=== PATIENT | male | born 1940 | race Caucasian/White ===

== ENCOUNTER → 2017-08-19 | Outpatient (CLI) | payer OTHER ==
[~2017-08-19] MED LIST: AMIODARONE HCL100 MG PO; ASPIR 8181 MG PO; AUGMENTIN 875875 MG PO; AZITHROMYCIN250 MG PO; BACTRIM DS TAB1 EAC1 PO; BACTRIM DS TAB1 EACH PO; CARVEDILOL12.5 MG PO; CARVEDILOL6.25 MG PO; CATAPRES-TTS 10.1 M1 TRANSDERM; CENTRUM SILVER1 EAC2 PO; COLACE100 MG PO; DIGOXIN250 MCG PO; ELIQUIS2.5 MG PO; ELIQUIS5 MG PO; HYDRALAZINE 2525 MG PO; HYTRIN 1 MG CAP1 MG PO; HYTRIN 2MG CAPSU2 M1 PO; HYTRIN 5 M5 MG/1 CAP PO; KEFLEX500 M1 PO; LASIX 40 MG TAB40 M2 PO; LEVOTHYROXIN0.175 MG PO; LIPITOR40 MG PO; MIRALAX17 GM PO; NIFEDIPINE XL30 MG PO; NORVASC10 MG PO; NYSTATIN 1100000 U/M PO; PACERONE 200 M200 M1 PO; PREDNISONE 10 M10 MG PO; PREDNISONE 20 M20 MG PO; RENAL CAPS SOFTG1 MG PO; SYNTHROID150 MCG PO; TUMS E.S.750 MG PO; TUMS PO; TYLENOL325 MG PO; VITAMIN B122500 MC1 PO
== END ==
LOC: M.LAB 13:10
DX: J44.1 Chronic obstructive pulmonary disease with (acute) exacerbation (principal); J90 Pleural effusion, not elsewhere classified; I26.99 Other pulmonary embolism without acute cor pulmonale

== ENCOUNTER 2017-09-19 10:48 | Inpatient (IN) | payer OTHER ==
[~2017-09-19] VITALS: Ht 180.3 cm; Wt 75.7 kg
[~2017-09-19 10:48] MED LIST changes: -COLACE100 MG PO; -ELIQUIS2.5 MG PO; -HYTRIN 1 MG CAP1 MG PO; -HYTRIN 2MG CAPSU2 M1 PO; -KEFLEX500 M1 PO; -MIRALAX17 GM PO; -SYNTHROID150 MCG PO; -TYLENOL325 MG PO
[2017-09-19 10:54] VITALS: BP 150/50
[2017-09-19] MEDS ORDERED: ELIQUIS2.5 MG PO (11:25)
[2017-09-19] MEDS ORDERED: LASIX 40 MG TAB40 M2 PO (11:27)
[2017-09-19] MEDS ORDERED: HYTRIN 1 MG CAP1 MG PO (11:28)
[2017-09-19] MEDS ORDERED: HYTRIN 2MG CAPSU2 M1 PO (11:28)
[2017-09-19] MEDS ORDERED: SYNTHROID150 MCG PO (11:28)
[2017-09-19 11:53] LABS: BE 5.3 mmol/L (-2 to +3); HCO3 28.5 mmol/L (22.0-26.0); PCO2 36.4 mmHg (35.0-45.0); PO2 65.6 mmHg (75.0-100.0); pH 7.511 (7.340-7.450)
[2017-09-19 12:31] LABS: ANION GAP 7 mmol/L (7-16); BUN 14 mg/dL (7-18); CALCIUM 8.9 mg/dL (8.5-10.1); CHLORIDE 97 mmol/L (98-107); CO2 35 mmol/L (21-32); CREATININE 2.7 mg/dL (0.6-1.3); GLUCOSE 105 mg/dL (70-99); POTASSIUM 3.6 mmol/L (3.5-5.1); SODIUM 139 mmol/L (136-145)
[2017-09-19 12:33] LABS: APTT 40.1 Seconds (25.0-31.3); HEMATOCRIT 28.7 % (42.0-52.0); HEMOGLOBIN 9.6 gm/dL (14.0-18.0); INR 1.3; MCH 30.3 pg (26.0-34.0); MCHC 33.2 g/dL (28.0-37.0); MPV 7.7 fl. (7.2-11.1); NUCLEATED RBCS 0 /100WBC; PLATELET COUNT* 234 thou/uL (150-400); PROTIME 12.7 Seconds (9.20-11.50); RBC 3.16 mil/uL (4.50-6.00); RDW-CV 17.4 % (10.5-14.5)
[2017-09-19 12:42] LABS: ALBUMIN 3.1 g/dL (3.4-5.0); ALKALINE PHOSPHATASE 63 U/L (46-116); NT-PRO BRAIN NAT PEPTIDE > 35000 pg/mL (<300); SGOT 17 U/L (15-37); SGPT 13 U/L (30-65); TOTAL BILIRUBIN 0.7 mg/dL (<0.1-1.0); TOTAL PROTEIN 8.1 g/dL (6.4-8.2); TROPONIN-I LEVEL <0.06 ng/mL (<0.06)
[2017-09-19 12:58] LABS: ABSOLUTE BASOPHILS 0.1 thou/uL (0.0-0.2); ABSOLUTE EOSINOPHILS 0.2 thou/uL (0.0-0.7); ABSOLUTE LYMPHOCYTES 0.5 thou/uL (0.8-5.3); ABSOLUTE MONOCYTES 0.4 thou/uL (0.0-1.2); ABSOLUTE NEUTROPHILS 6.9 thou/uL (1.6-8.1)
[2017-09-19 12:59] LABS: PLATELET ESTIMATE ADEQUATE
--- NOTE | 2017-09-19 14:02 | NUR ---
LUNCH TRAY WAS SERVED
--- NOTE | 2017-09-19 14:35 | EKG ---
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 CUTLER : 1940 Requested By: Rubén Cuba Order Number: [id number] MD: Kalia Glass Measurements Intervals [place] Rate: 79 P: 43 OH: 48 QRS: 58 QRSD: 96 T: 6 QT: 428 QTc: 491 Interpretive Statements Sinus rhythm Atrial premature complex Left atrial enlargement Nonspecific repol abnormality, diffuse leads Borderline prolonged QT interval Compared to ECG 01/10/2017 10:26:12 Atrial premature complex(es) now present Atrial abnormality now present Atrial fibrillation no longer present Electronically Signed On 09-19-2017 14:35:29 CDT by Kalia Glass [email or web address] <ELECTRONICALLY SIGNED> By: Kalia Glass MD, [facility] 09/19/17 1435 1100 1100 Kalia Glass MD, [facility] /EPI
[2017-09-19 16:08] VITALS: BP 163/63
[2017-09-19 18:04] VITALS: BP 155/69
--- NOTE | 2017-09-19 18:30 | NUR ---
PT ARRIVED TO UNIT. ORIENTED TO UNIT. CALL LIGHT WITHIN REACH. PT ON 02@4L NC
[2017-09-19 19:40] VITALS: BP 142/53
[2017-09-19 23:27] VITALS: BP 146/57
--- NOTE | 2017-09-20 03:24 | NUR ---
ASSUMED CARE OF PT AT 1900. PT IS ALERT AND ORIENTED. VSS. PERRLA. NO COMPLAINTS OF PAIN. NO COMPLAINTS OF SOA. PT IS IN SINUS RYTHM ON THE TELEMETRY. PT IS RESTING COMFORTABLY IN BED. RESPIRATIONS ARE EVEN AND NONLABORED. WILL CONTINUE TO MONITOR PT.
[2017-09-20 04:30] VITALS: BP 120/56
[2017-09-20 04:58] LABS: ABSOLUTE LYMPHOCYTES 0.2 thou/uL (0.8-5.3); ABSOLUTE MONOCYTES 0.1 thou/uL (0.0-1.2); ABSOLUTE NEUTROPHILS 5.5 thou/uL (1.6-8.1); BASOPHILS 0.3 %; HEMATOCRIT 26.1 % (42.0-52.0); HEMOGLOBIN 8.7 gm/dL (14.0-18.0); LYMPHOCYTES 3.9 %; MCH 30.5 pg (26.0-34.0); MCHC 33.2 g/dL (28.0-37.0); MCV 91.9 fL (80.0-100.0); MONOCYTES 1.8 %; NUCLEATED RBCS 0 /100WBC; PLATELET COUNT* 197 thou/uL (150-400); RBC 2.84 mil/uL (4.50-6.00); RDW-CV 17.1 % (10.5-14.5); WBC 5.8 thou/uL (4.0-11.0)
[2017-09-20 05:32] LABS: CALCIUM 8.1 mg/dL (8.5-10.1); CREATININE 4.4 mg/dL (0.6-1.3); POTASSIUM 3.8 mmol/L (3.5-5.1)
[2017-09-20 08:26] VITALS: BP 143/58
--- NOTE | 2017-09-20 09:34 | CON ---
[address] [address] CONSULTATION Name: HERBERJOURDAN Maximino Room: [address] IN .R.#: [id number] Admission: 09/19/17 Attend Phys: Kenan Buchanan MD Discharge: Date of : 40 Report #: [id number] THIS REPORT FOR: //name// CC: Kenan Buchanan Keven Huizar DATE OF SERVICE: 09/19/2017 NEPHROLOGY CONSULTATION CONSULTING PHYSICIAN: Kenan Buchanan MD REASON FOR CONSULTATION: End-stage kidney disease. HISTORY OF PRESENT ILLNESS: This is a 77-year-old gentleman with history of end-stage kidney disease, on hemodialysis. He dialyzed today. He was sent to the Emergency Room for hypoxia. He had previous admission here in 2017 during which time he had a positive p-ANCA and hemoptysis. He was eventually transferred to [facility] for rituximab. He has also been on amiodarone and has had recently a cough with some whitish phlegm along with his hypoxia. He denies any hemoptysis. No nausea or vomiting. REVIEW OF SYSTEMS: Constitutional, psych, heme, eyes, ENT, respiratory, cardiac, GI, , endocrine, all negative except as documented above. 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 CURRENT MEDICATIONS: Reviewed. SOCIAL HISTORY: Former smoker. FAMILY HISTORY: Not pertinent. PHYSICAL EXAMINATION: VITAL SIGNS: Blood pressure 163/63, pulse 76, respirations 29, temperature 36. GENERAL: In no acute distress. EYES: Extraocular movements intact. EARS: Externally normal. CARDIOVASCULAR: Regular rate. LUNGS: Diminished breath sounds. ABDOMEN: Soft, nontender. LYMPHATICS: No significant pitting edema. PSYCHIATRIC: Awake, [place] [address] CONSULTATION Name: JOURDAN CRAVEN Room: [address]#: [id number] Admission: 09/19/17 Attend Phys: Kenan Buchanan MD Discharge: Date of : 40 Report #: [id number] LABORATORY DATA: White cell count 8, hemoglobin 9.6, platelets 234. Sodium 139, potassium 3.6, chloride 97, bicarbonate 35, BUN 14, creatinine 2.7, glucose 105, calcium 8.9, albumin 3.1. ASSESSMENT: 1. End-stage kidney disease, hemodialysis Tuesday, Tuesday and Tuesday at [facility]. 2. Pulmonary infiltrates/pneumonitis with possible fibrosis and pneumonitis. 3. 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 His c-ANCA was 1:20. He was treated with rituximab at [facility]. He does not have an outpatient package drier and he is not currently on any immunosuppression. He does not have any hemoptysis. PLAN: 1. We will continue maintenance dialysis Tuesday, Tuesday and Tuesday. 2. Antibiotics and bronchodilators have been ordered. Pulmonology has been consulted. 3. We will send an ANCA panel. Case was discussed with Dr. Buchanan. Thank you for requesting my opinion in the care and management of this patient. We will follow for dialysis needs. <ELECTRONICALLY SIGNED> By: Dilan Valdez MD 09/20/17 0934 1637 [id number] Valdez MD /nt
--- NOTE | 2017-09-20 10:11 | NUR ---
RECEIVED REPORT AND ASSUMED CARE.VSS. CARDIAC MONITORING IN PLACE. PT DENIES ANY COMPLAINTS OF PAIN. DISCUSSED PLAN OF CARE WITH PT, VERBALIZED UNDERSTANDING. ASSESSMENT COMPLETED CHARTED. BED IN LOWEST POSITION, CALL LIGHT WITHIN REACH, BED ALARM ON. PT UP WITH SBA IN ROOM, PT ON 3.5L NC. WILL CONTINUE TO MONITOR FOR REMAINDER OF THE SHIFT
--- NOTE | 2017-09-20 10:51 | NUR ---
SW met with pt to complete initial assessment, introduce self, and SW role. Pt alert, oriented, pleasant. Pt lives at home with his . Pt continues Dialysis MWF at [facility]. Pt does not anticipate any dc needs at this time. Pt does not have or need any AD for mobility or ADLs and has not history of HH or SNF. SW to follow.
[2017-09-20 11:33] VITALS: BP 141/60
--- NOTE | 2017-09-20 12:35 | NUR ---
Nutrition: Consult received for "dialysis." Pt has had ESRD on HD x7 yrs, he stated. H/o COPD, ESRD. Admitted with pneumonia, SIRS. Renal diet. Wt: 167#. Labs: BG 202, BUN 33, creat 4.4, albumin 3.1. Pt stated no nutrition needs or questions today. Consider mild risk.
[2017-09-20 15:27] VITALS: BP 138/56
--- NOTE | 2017-09-20 18:04 | NUR ---
PT RESTING IN ROOM. VSS, CARDIAC MONITORING IN PLACE. PT DENIES ANY COMPLAINTS OF PAIN. PT DIALYSIS PT M/W/F AT [facility]. DISCUSSED PLAN OF CARE, PT TOLERATING ABX TREATMENTS WELL. PT ON 3.5L NC. BED IN LOWEST POSITION, CALL LIGHT WITHIN REACH. BED ALARM ON. WILL CONTINUE TO MONITOR FOR REMAINDER OF THE SHIFT
[2017-09-20 20:10] VITALS: BP 145/61
[2017-09-21] VITALS: BP 133/50
--- NOTE | 2017-09-21 03:10 | NUR ---
PT IS ALERT AND ORIENTED. VSS. PERRLA. NO COMPLAINTS OF PAIN. NO COMPLAINTS OF SOA. PT IS IN SINUS RYTHM ON THE TELEMETRY. PT IS RESTING COMFORTABLY IN BED. RESPIRATIONS ARE EVEN AND NONLABORED. WILL CONTINUE TO MONITOR PT.
[2017-09-21 04:00] VITALS: BP 144/64
[2017-09-21 05:45] LABS: ALBUMIN 2.9 g/dL (3.4-5.0); CALCIUM 8.6 mg/dL (8.5-10.1); TOTAL BILIRUBIN 0.4 mg/dL (<0.1-1.0); TOTAL PROTEIN 7.7 g/dL (6.4-8.2)
[2017-09-21 05:54] LABS: ABSOLUTE LYMPHOCYTES 0.3 thou/uL (0.8-5.3); ABSOLUTE MONOCYTES 0.2 thou/uL (0.0-1.2); ABSOLUTE NEUTROPHILS 12.2 thou/uL (1.6-8.1); BASOPHILS 0.2 %; HEMATOCRIT 27.3 % (42.0-52.0); HEMOGLOBIN 8.9 gm/dL (14.0-18.0); MCH 30.2 pg (26.0-34.0); MCHC 32.5 g/dL (28.0-37.0); MCV 92.9 fL (80.0-100.0); MONOCYTES 1.8 %; MPV 8.1 fl. (7.2-11.1); NUCLEATED RBCS 0 /100WBC; PLATELET COUNT* 231 thou/uL (150-400); RBC 2.94 mil/uL (4.50-6.00); RDW-CV 17.5 % (10.5-14.5); WBC 12.7 thou/uL (4.0-11.0)
[2017-09-21] MEDS ORDERED: PREDNISONE 10 M10 MG PO (11:55)
[2017-09-21] MEDS ORDERED: KEFLEX500 M1 PO (11:56)
--- NOTE | 2017-09-21 12:25 | NUR ---
Pt to dc home with today. SHAI called [facility] at [facility] [phone] and informed of pt dc with pt to return to their clinic on Tuesday. SHAI faxed needed information for continuum of care to fax [phone].
[2017-09-21] MEDS ORDERED: TYLENOL325 MG PO (12:36)
[2017-09-21] MEDS ORDERED: COLACE100 MG PO (12:37)
[2017-09-21] MEDS ORDERED: MIRALAX17 GM PO (12:38)
[2017-09-21 12:40] VITALS: BP 144/64
--- NOTE | 2017-09-22 08:32 | CON ---
[facility] [address] [place] [address] CONSULTATION Name: JOURDAN CRAVEN Room: [address] IN .R.#: [id number] Admission: 09/19/17 Attend Phys: Kenan Buchanan MD Discharge: 09/21/17 Date of : 40 Report #: [id number] THIS REPORT FOR: //name// CC: Kenan Huizar REQUESTING PHYSICIAN: Kenan Buchanan M.D. REASON FOR CONSULTATION: Pulmonary infiltrates, history of p-ANCA vasculitis. DISCUSSION: The patient is a pleasant 77-year-old man who is a remote tobacco smoker, quitting greater than 20 years ago. He has a history of end-stage renal disease as well as p-ANCA vasculitis. This was originally diagnosed 6-7 years ago. He did well until last summer. Then was having issues with hemoptysis and pulmonary infiltrates. Followup serology did reveal a bump in his p-ANCA titer as well. He did receive treatment for that. He did well and support was removed. He has been doing relatively well. Continued with his thrice weekly dialysis. When he arrived at dialysis yesterday, he was not feeling well, was starting to feel more short of breath. He has had some increased cough and congestion. He is not aware of any fevers at home. He has been around a sick child. Did have a trip to [place]. He denies any chest pain. He has not had any hemoptysis since last year. When he was seen in dialysis, he had low O2 saturations and he was sent to the Emergency Department. He was evaluated there yesterday. Chest imaging did show worsening of infiltrate seen on the right side. He was started on antibiotics. He was also given IV steroids. This morning when seen, he notes he is feeling much better. Not having much of any cough or sputum production at this time. His O2 was being weaned off at the time I saw him. Currently, I do not have followup room air O2 saturation on him. He is a remote smoker, quitting greater than 20 years ago. At the time of his original diagnosis of the p-ANCA vasculitis, which was 6-7 years ago, he was being seen at [facility]. Did have bronchoscopy done at that time. Also, PFTs. I do not have the actual values, the interpretation was that he had a moderate obstructive and restrictive process. He has not had any followup CT imaging of his chest since he was here last year (as well as at [facility]). He has not seen a manager intern though it had been recommended. No recent PFTs. PAST MEDICAL HISTORY: Besides end-stage renal disease was remarkable for prior episodes of pneumonia. He had the p-ANCA vasculitis, hypertension, hypothyroidism, coronary artery disease with stents placed in the past, paroxysmal atrial fibrillation, hypothyroidism, prior cardiomyopathy [place] [address] CONSULTATION Name: READERJOURDAN Maximino Room: [address] IN [facility]#: [id number] Admission: 09/19/17 Attend Phys: Kenan Buchanan MD Discharge: 09/21/17 Date of : 40 Report #: [id number] He is normally not on any oxygen at home. No inhalers. HOME MEDICATIONS: Calcium carbonate, Lasix, levothyroxine, Eliquis, amlodipine, Hytrin. SOCIAL HISTORY: Remote smoker. 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 FAMILY HISTORY: Positive for lung cancer in the parent's. REVIEW OF SYSTEMS: ROS was done. Note positives as above. Actually has been feeling quite good up until just the last couple of days. He has been off all immunosuppressive medications, had his port removed. Denies any difficulty swallowing. Not had any nausea or vomiting. He does tend towards a little fluid retention in his legs. He is better after dialysis. Denies any syncopal episodes. No chest pain. He has not had any hemoptysis since he was here in the hospital last year. Not noted any blood in his stools. LABORATORY AND X-RAY FINDINGS: Chest x-ray was reviewed. On chest film done yesterday, it does show probably small right pleural effusion. He does have prominence of interstitial markings bilaterally. These have been seen over the last couple of years. However, he does appear to have worsening infiltrate seen on the right side relative to older studies. Last CT chest at this facility was done in December of 2016. At that time, he did have a right pleural effusion and really no fluid on the left side. He did have some consolidative changes seen bilaterally. On his chemistry today, BUN of 33, creatinine of 4.4, potassium 3.8. Transaminase is normal. ProBNP yesterday was greater than 3500. INR was 1.3. White blood cell count 5800, hemoglobin 8.7, hematocrit 26.1, platelets are normal. Serologies are currently pending from this admission. Last summer, his p-ANCA was positive at 1:160. The glomerular basement membrane antibody was negative. Arterial blood gases done yesterday on 5 liters, he had a pH of 7.51, pCO2 of 36, pO2 of 66, bicarbonate of 29 with a saturation of 92%. Blood cultures were sent and no growth to date. IMPRESSION: 1. Pulmonary infiltrates, have worsened. Clinically, suspect this is more likely pneumonia. Did have some travel as well as exposure to a small child who had been ill. He is clinically improved overnight. Has been on the antibiotics, as well as receiving steroids. Appears to have had improvement in his O2 needs. 2. History of p-ANCA vasculitis. It is not clear if his vasculitis is active at this time as well. Clinically, I suspect it is not. He has had no hemoptysis since last year. 3. Pulmonary infiltrates. I assume it seems probably chronic. May have some underlying fibrotic changes related [place] [address] CONSULTATION Name: JOURDAN CRAVEN Room: [address]#: [id number] Admission: 09/19/17 Attend Phys: Kenan Buchanan MD Discharge: 09/21/17 Date of : 40 Report #: [id number] 4. History of paroxysmal atrial fibrillation. He has been chronically anticoagulated. 5. End-stage renal disease, is on chronic hemodialysis. 6. Anemia. RECOMMENDATIONS: 1. We will follow up chest x-ray tomorrow. 2. Wean O2 as able. 3. Continue antibiotics, but should be able to start tapering back on the prednisone. 4. He has not had a CT scan done of his chest. We will make arrangements for that to be done. 5. Unfortunately he has not followed through and seen Rheumatology. Trying to get that done at some point as an outpatient would probably be prudent. 6. Consider full pulmonary function studies when he is out of the hospital and over this acute event to ascertain his baseline. <ELECTRONICALLY SIGNED> By: Marlena Win MD 09/22/17 0832 1248 1954Marlena Win MD /nt
== END 2017-09-21 13:57 | disposition home or self-care (01) | DRG 177 ==
LOC: M.ERS 10:48 → M.2W 12:53 → M.TBA-ER 12:53 → M.2W 16:20
PROVIDERS: Emergency Medicine; ADMIT Internal Medicine
DX: J15.6 Pneumonia due to other Gram-negative bacteria (principal); N18.6 End stage renal disease; J96.01 Acute respiratory failure with hypoxia; J44.1 Chronic obstructive pulmonary disease with (acute) exacerbation; J44.0 Chronic obstructive pulmonary disease with (acute) lower respiratory infection; R65.10 Systemic inflammatory response syndrome (SIRS) of non-infectious origin without acute organ dysfunction; I42.9 Cardiomyopathy, unspecified; I12.0 Hypertensive chronic kidney disease with stage 5 chronic kidney disease or end stage renal disease; I48.0 Paroxysmal atrial fibrillation; D64.9 Anemia, unspecified; I25.10 Atherosclerotic heart disease of native coronary artery without angina pectoris; E03.9 Hypothyroidism, unspecified; Z87.891 Personal history of nicotine dependence; Z99.2 Dependence on renal dialysis; Z95.5 Presence of coronary angioplasty implant and graft; Z79.899 Other long term (current) drug therapy; Z88.8 Allergy status to other drugs, medicaments and biological substances; Z83.6 Family history of other diseases of the respiratory system; Z80.1 Family history of malignant neoplasm of trachea, bronchus and lung

== ENCOUNTER 2018-04-17 15:18 | Inpatient (IN) | payer OTHER ==
[~2018-04-17] VITALS: Ht 177.8 cm; Wt 54.9 kg
[~2018-04-17 15:18] MED LIST changes: +COLACE100 MG PO; +ELIQUIS2.5 MG PO; +HYTRIN 1 MG CAP1 MG PO; +HYTRIN 2MG CAPSU2 M1 PO; +KEFLEX500 M1 PO; +MIRALAX17 GM PO; +SYNTHROID150 MCG PO; +TYLENOL325 MG PO
[2018-04-17 17:05] VITALS: BP 169/85
[2018-04-17] MEDS ORDERED: NEPHROCAPS SOFT1 CAP PO (17:23)
--- NOTE | 2018-04-17 18:00 | NUR ---
PT DIRECT ADMIT FROM [facility]. PT HAS HAD WORSENING COUGH WITH CONGESTION X1 WEEK WITH REPORTED THICK GREEN PHLEGM. PT LUNGS COURSE THROUGHOUT, CONGESTED COUGH, RESPIRATIONS EVEN AND LABORED WITH ACTIVITY, ABLE TO RECOVER EASILY WITH REST. O2 SAT ON ARRIVAL 86 RA AFTER WALKING TO ROOM FROM FRONT OF HOSPITAL. 2L O2 NC APPLIED, O2 SAT MID 90'S. PT HAS HEMODIALYSIS M,W,F AND DID COMPLETE DIALYSIS TODAY. PT DENIES PAIN. TELE AFIB. PT ORIENTED TO ROOM, ABLE TO MAKE NEEDS KNOWN, CALL LIGHT IN REACH.
[2018-04-17 18:23] LABS: HEMATOCRIT 30.7 % (42.0-52.0); HEMOGLOBIN 10.1 gm/dL (14.0-18.0); MCH 32.8 pg (26.0-34.0); MCHC 32.9 g/dL (28.0-37.0); MCV 99.5 fL (80.0-100.0); MPV 9.5 fl. (7.2-11.1); NUCLEATED RBCS 0 /100WBC; PLATELET COUNT* 110 thou/uL (150-400); RBC 3.08 mil/uL (4.50-6.00); RDW-CV 17.3 % (10.5-14.5); WBC 6.9 thou/uL (4.0-11.0)
[2018-04-17 18:31] LABS: CALCIUM 8.6 mg/dL (8.5-10.1); CREATININE 4.4 mg/dL (0.6-1.3); POTASSIUM 4.3 mmol/L (3.5-5.1)
[2018-04-17 18:36] LABS: ALBUMIN 2.9 g/dL (3.4-5.0); TOTAL BILIRUBIN 0.8 mg/dL (<0.1-1.0); TOTAL PROTEIN 7.6 g/dL (6.4-8.2)
[2018-04-17 18:55] LABS: ABSOLUTE EOSINOPHILS 0.1 thou/uL (0.0-0.7); ABSOLUTE LYMPHOCYTES 0.6 thou/uL (0.8-5.3); ABSOLUTE MONOCYTES 0.3 thou/uL (0.0-1.2); ABSOLUTE NEUTROPHILS 5.9 thou/uL (1.6-8.1); ANISOCYTOSIS 1+; MICROCYTES 1+; PLATELET ESTIMATE ADEQUATE
[2018-04-17 20:00] VITALS: BP 148/74
--- NOTE | 2018-04-17 20:00 | NUR ---
RECEIVED REPORT AND ASSUMED CARE OF PT, ASSESSMENT COMPLETED. O2 ON AT 2L/NC, NO SOB NOTED. PT HAVING A FREQ PRODUCTIVE COUGH. SPUTUM OBTAINED AND SENT TO LAB. TELEMETRY ON SHOWING A-FIB WITH OCC PVC. WILL CONT TO MONITOR AND ASSIST NEEDED.
[2018-04-17 22:02] LABS: URINE BILIRUBIN NEGATIVE (Negative); URINE BLOOD NEGATIVE (Negative); URINE CLARITY CLEAR; URINE COLOR YELLOW; URINE GLUCOSE-RANDOM NEGATIVE (Negative); URINE KETONES NEGATIVE (Negative); URINE LEUKOCYTES NEGATIVE (Negative); URINE NITRITE NEGATIVE (Negative); URINE PROTEIN 2+ (Negative); URINE SPECIFIC GRAVITY 1.015 (1.005-1.030); URINE UROBILINOGEN 0.2 E.U./dl (0.2-1.0)
[2018-04-17 22:19] LABS: BACTERIA None Seen /HPF (None Seen); CASTS None Seen /LPF (None Seen); CRYSTALS None Seen /LPF (None Seen); MUCUS 0-3 Light strn/LPF (None Seen); SQUAMOUS 4-10 Moderate /LPF (0-3); URINE RBC None Seen /HPF (0-2); URINE WBC None Seen /HPF (0-5)
[2018-04-17 22:34] LABS: BE 2.2 mmol/L (-2 to +3); HCO3 25.8 mmol/L (22.0-26.0); PCO2 36.1 mmHg (35.0-45.0); PO2 74.4 mmHg (75.0-100.0); pH 7.472 (7.340-7.450)
[2018-04-18] VITALS: BP 151/69
[2018-04-18 01:17] LABS: INFLUENZA A ANTIGEN None Detected (None Detect); INFLUENZA B ANTIGEN None Detected (None Detect)
[2018-04-18 04:00] VITALS: BP 127/71
[2018-04-18 04:52] LABS: HEMATOCRIT 30.8 % (42.0-52.0); HEMOGLOBIN 10.2 gm/dL (14.0-18.0); MCV 100.2 fL (80.0-100.0); MPV 9.4 fl. (7.2-11.1); RBC 3.07 mil/uL (4.50-6.00); WBC 6.2 thou/uL (4.0-11.0)
[2018-04-18 05:17] LABS: CREATININE 5.3 mg/dL (0.6-1.3); MAGNESIUM 2.1 mg/dL (1.8-2.4); POTASSIUM 4.9 mmol/L (3.5-5.1)
--- NOTE | 2018-04-18 06:30 | NUR ---
SLEPT WELL TONIGHT. CONT COUGHING UP SPUTUM WHEN AWAKE. O2 ON AT 2L/NC. TELEMETRY CONT TO SHOW A-FIB. NO COMPLAINTS VOICED. HS GOALS OF REST AND SAFETY ACHIEVED. HOURLY ROUNDING OBSERVED.
[2018-04-18 09:00] VITALS: BP 138/65
--- NOTE | 2018-04-18 10:53 | NUR ---
ASSUMED CARE OF PATIENT THIS AM AT 0730. PATIENT IS ALERT AND ORIENTED X 4. HE DENIES PAIN. TELE SHOWS AFIB. PATIENT RECIEVING RESPIRATORY TX PER RT. HE HAS MININAL COUGH TODAY. NO SPUTUM AT THIS TIME. WILL CONTINUE TO MONITOR VS AND ASSESSMENTS.
--- NOTE | 2018-04-18 11:07 | NUR ---
CM ASSESSMENT: VISITED WITH PT IN ROOM. PT ADMITTED WITH PNEUMONIA. PT LIVES WITH AND GOES TO DIALYSIS MWF AT [facility] WITH [facility]. 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 PT WEARS O2 AT NIGHT WHICH HE GETS THROUGH [facility]. 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 HE DENIES NEEDS FOR HH. CM WILL CONTINUE TO FOLLOW
[2018-04-18 11:49] VITALS: BP 150/80
[2018-04-18 16:00] VITALS: BP 166/82
[2018-04-18 20:00] VITALS: BP 158/86
[2018-04-19] VITALS: BP 136/73
[2018-04-19 04:00] VITALS: BP 142/72
[2018-04-19 05:32] LABS: HEMOGLOBIN 9.5 gm/dL (14.0-18.0); MCH 33.4 pg (26.0-34.0); MCHC 33.7 g/dL (28.0-37.0); MPV 9.5 fl. (7.2-11.1); RBC 2.83 mil/uL (4.50-6.00); RDW-CV 16.8 % (10.5-14.5); WBC 9.1 thou/uL (4.0-11.0)
[2018-04-19 06:00] LABS: ALBUMIN 2.8 g/dL (3.4-5.0); CALCIUM 8.9 mg/dL (8.5-10.1); MAGNESIUM 2.3 mg/dL (1.8-2.4); POTASSIUM 5.2 mmol/L (3.5-5.1); TOTAL BILIRUBIN 0.7 mg/dL (<0.1-1.0); TOTAL PROTEIN 6.8 g/dL (6.4-8.2)
[2018-04-19 06:04] LABS: CREATININE 6.8 mg/dL (0.6-1.3)
--- NOTE | 2018-04-19 06:59 | NUR ---
ASSUMED PT CARE AT 2330. PT TRACING AFIB ON METAL MOLD DRESSER. HOURLY ROUNDING COMPLETED. PT VOICED NO CONCERNS THIS SHIFT. PT TO HAVE DIALYSIS TODAY. CALL LIGHT WITHIN REACH.
[2018-04-19 08:00] VITALS: BP 144/77
[2018-04-19 08:02] VITALS: BP 144/77
--- NOTE | 2018-04-19 11:31 | CON ---
[address] [address] CONSULTATION Name: HERBERLEOCLOTILDE Stanton Room: [address] IN .#: [id number] Admission: 04/17/18 Attend Phys: Francisco Javier Dey MD Discharge: Date of : 40 Report #: [id number] THIS REPORT FOR: //name// CC: Francisco Javier Huizar DATE OF SERVICE: 04/18/2018 REASON FOR CONSULTATION: Assist in providing dialysis. HISTORY OF PRESENT ILLNESS: The patient is a very pleasant 78-year-old gentleman, with medical history significant for end-stage renal disease. He is on chronic dialysis on Tuesday, Tuesday, and Tuesday schedule. He also has history of p-ANCA vasculitis, treated with Cytoxan and steroids in the past, presented with shortness of breath. He was admitted with a diagnosis of pneumonia. SOCIAL HISTORY: No tobacco or alcohol abuse. He has a very supportive family. He is physically active. FAMILY HISTORY: Noncontributory. MEDICATIONS: Reviewed. REVIEW OF SYSTEMS: Positive for cough, shortness of breath, cough with sputum, which is brownish-greenish in color. PHYSICAL EXAMINATION: GENERAL: Awake, alert, oriented. States that he feels better today. VITAL SIGNS: Blood pressure is 138/65, heart rate 85, afebrile. HEENT: Pupils are round. NECK: Supple. LUNGS: With coarse breath sounds bilaterally, very poor breath sounds overall. CARDIOVASCULAR: Regular rate. ABDOMEN: Soft. LOWER EXTREMITIES: No edema. LABORATORY DATA: Report from today; serum sodium 137, potassium 4.9, BUN 39, creatinine 5.3. Hemoglobin is 10.2, white count 6200. He has a chest x-ray and a CT scan, both revealed extensive alveolar opacities, diffuse interstitial prominence and some sickness and there was a large area of consolidation in the right middle lobe, which apparently was present on the previous exam and probably represents scarring. ASSESSMENT: [place] [address] CONSULTATION Name: HERBERJOURDAN Maximino Room: [address]#: [id number] Admission: 04/17/18 Attend Phys: Francisco Javier Dey MD Discharge: Date of : 40 Report #: [id number] 1. End-stage renal disease. 2. Respiratory distress, most likely due to pneumonia. 3. History of vasculitis. 4. 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 The patient also has an extensive coronary atherosclerosis. PLAN: 1. Dialysis tomorrow. 2. Continue antibiotics. 3. Possible consult Vascular to look and he has a high-grade stenosis of the celiac artery. <ELECTRONICALLY SIGNED> By: Tru Olmedo MD 04/19/18 1131 1151 0108AlexMD MILAN Zhao
--- NOTE | 2018-04-19 16:00 | NUR ---
VSS, ASSUMED CARE OF PT IN AM, ASSESSMENT PERFORMED AND CHARTED, FALL PRECAUTIONS IN PLACE AND CALL LIGHT IN REACH, PT IS A&O4 ON RA, WEARS 2LNC AT HS, PT DENIES ANY PAIN AND IS UP AD [facility], HE HAS COMPLETED DIALYSIS, HOURLY ROUNDS COMPLETED AND WILL FOLLOW WITH PLAN OF CARE,
[2018-04-19 16:07] LABS: HEPATITIS B SURFACE AG Negative (Negative)
[2018-04-19 16:12] VITALS: BP 148/72
[2018-04-19 20:00] VITALS: BP 147/70
[2018-04-20] VITALS: BP 144/75
[2018-04-20 04:00] VITALS: BP 144/82
--- NOTE | 2018-04-20 06:46 | NUR ---
ASSUMMED PT CARE @ 1930. VSS. PT AFIB W PVS AND MILD TACHY ON MONITOR. PT DENIES ANY DISTRESS OR DISCOMFORT OTHER THAN COUGH. PT WAS FINALLY ABLE TO FALL ASLEEP AFTER PRN NIGHT MEDS GIVEN. RESTED THROUGH NIGHT WITHOUT INCIDENT. SEE EMAR AND CHARTING. CALL LIGHT AT BEDSIDE. HOURLY ROUNDING FOR SAFETY.
[2018-04-20 08:05] VITALS: BP 154/85
[2018-04-20 12:00] VITALS: BP 138/76
[2018-04-20] MEDS ORDERED: CEFDINIR300 MG PO (12:41)
[2018-04-20] MEDS ORDERED: IPRAT-ALBUT 0.5-3 ML INH (12:41)
[2018-04-20] MEDS ORDERED: DOXYCYCLINE 10100 MG PO (12:41)
[2018-04-20] MEDS ORDERED: PULMICORT0.5 MG/2 M INH (12:41)
[2018-04-20] MEDS ORDERED: PREDNISONE 20 M20 MG PO (12:41)
[2018-04-20] MEDS ORDERED: NEBULIZER MISCELL (12:41)
[2018-04-20 13:20] VITALS: BP 138/76
--- NOTE | 2018-04-20 13:49 | NUR ---
Pt discharging to home today, [facility]
--- NOTE | 2018-04-20 14:13 | NUR ---
PT DC'D HOME WITH ALL BELONGINGS. PT ACKNOWLEDGED DC INSTRUCTIONS AND MEDICATIONS. PT SENT WITH 4 RX AND NEBULIZER TO BE DELIVERED TO HOME. PT REPORTED COUGH BETTER AND LESS PHLEGM. PT ALSO TOLERATED ACTIVITY WITHOUT SIGNIFICANT SOA. IV REMOVED INTACT BEFORE DC
== END 2018-04-20 14:04 | disposition home or self-care (01) | DRG 177 ==
LOC: M.2W 15:18
PROVIDERS: Internal Medicine; ADMIT Internal Medicine
PROC: 5A1D70Z Performance of Urinary Filtration, Intermittent, Less than 6 Hours Per Day (ICD-10-PCS; principal; 2018-04-19)
DX: J15.6 Pneumonia due to other Gram-negative bacteria (principal); N18.6 End stage renal disease; R65.10 Systemic inflammatory response syndrome (SIRS) of non-infectious origin without acute organ dysfunction; J96.11 Chronic respiratory failure with hypoxia; D68.59 Other primary thrombophilia; I12.0 Hypertensive chronic kidney disease with stage 5 chronic kidney disease or end stage renal disease; J15.9 Unspecified bacterial pneumonia; I70.208 Unspecified atherosclerosis of native arteries of extremities, other extremity; E78.5 Hyperlipidemia, unspecified; E03.9 Hypothyroidism, unspecified; I48.91 Unspecified atrial fibrillation; Z80.1 Family history of malignant neoplasm of trachea, bronchus and lung; Z88.2 Allergy status to sulfonamides; Z88.8 Allergy status to other drugs, medicaments and biological substances; Z87.891 Personal history of nicotine dependence; Z99.2 Dependence on renal dialysis

== ENCOUNTER 2018-05-17 17:06 | Inpatient (IN) | payer OTHER ==
[~2018-05-17] VITALS: Ht 180.3 cm; Wt 75.2 kg
--- NOTE | ~2018-05-17 | CON ---
[address] [address] CONSULTATION Name: HERBERJOURDAN Maximino Room: [address] IN [facility]#: [id number] Admission: 05/17/18 Attend Phys: Stu Vickers Discharge: Date of : 40 Report #: [id number] THIS REPORT FOR: //name// CC: [facility] Maureen Cobos REASON FOR CONSULTATION: Renal consult was requested for ESRD followup. HISTORY OF PRESENT ILLNESS: The patient is on a Gkperp-Hrlkuxpbo-Lhlduu schedule and has an AV fistula in the left arm. He was recently discharged from the hospital after an admission for pneumonia. He has been now readmitted for persistent dyspnea. Otherwise, he has had no fevers or chills. No chest pains. No nausea or vomiting. There is no history of diabetes or thyroid disease. In fact, all other systems were negative. PAST MEDICAL HISTORY: 1. End-stage renal disease, normally on a Moacys-Nwaouqoft-Epnszf schedule at the [facility]. 2. AV fistula in the left arm. 3. History of p-ANCA vasculitis, previously treated with immunosuppression. 4. Recent admission for pneumonia. 5. Atrial fibrillation. 6. Anemia due to chronic kidney disease. 7. Chronic obstructive pulmonary disease. 8. Hypertension. ALLERGIES: PLAVIX, SULFA AND TRIMETHOPRIM. SOCIAL HISTORY: Negative for tobacco use or alcohol use. FAMILY HISTORY: Negative for kidney disease. MEDICATIONS: Levofloxacin 500 mg every other day, apixaban 1.25 mg b.i.d., amlodipine 10 mg at bedtime, Solu-Medrol 62.5 mg every 8 hours, aspirin 81 mg daily, terazosin 1 mg daily, levothyroxine 0.2 mg daily, diltiazem 120 mg b.i.d., Colace 100 mg daily, Zosyn. PHYSICAL EXAMINATION: VITAL SIGNS: Blood pressure 135/89, pulse 112, temperature is 99. GENERAL: He is awake and alert. Mood and affect is at baseline. NECK: No jugular venous distention. CHEST: Clear. HEART: Regular rate and rhythm. ABDOMEN: Soft. There was no edema. LABORATORY DATA: Chest x-ray notable for bilateral interstitial opacities, [place] [address] CONSULTATION Name: JOURDAN CRAVEN Room: [address]#: [id number] Admission: 05/17/18 Attend Phys: Stu Vickers Discharge: Date of : 40 Report #: [id number] likely pulmonary edema. White count 5600, hemoglobin 11.6, hematocrit 35.3%, platelet count 115,000. Sodium 137, potassium 5.6, chloride 96, CO2 of 32, creatinine 3.4, calcium 9.2, phosphorus less than 0.1. IMPRESSION: 1. End-stage renal disease, normally on a Oqjsvt-Houfgfhxk-Zkfwjz schedule at [facility]. 2. History of p-ANCA positive vasculitis, previously treated with immunosuppression. 3. Severe hypophosphatemia. 4. Multifactorial dyspnea. 5. Chronic obstructive pulmonary disease. 6. Atrial fibrillation. 7. Chronic anticoagulation. 8. Anemia of chronic kidney disease. 9. Hypertension. PLAN: 1. Plan for hemodialysis tomorrow. 2. Phosphorus replacement. 3. Continue empiric antibiotics. 4. Recheck ANCA level. 5. Follow laboratory data closely. Further recommendations will depend on his clinical course. Thank you very much for asking me to see the patient and allowing me to assist in his care. By: 1527 [id number] Jose Antonio Gaitan MD /nt
[~2018-05-17 17:06] MED LIST changes: +CEFDINIR300 MG PO; +DOXYCYCLINE 10100 MG PO; +IPRAT-ALBUT 0.5-3 ML INH; +NEBULIZER MISCELL; +NEPHROCAPS SOFT1 CAP PO; +PULMICORT0.5 MG/2 M INH
[2018-05-17 17:13] VITALS: BP 173/91
[2018-05-17 18:12] LABS: HEMATOCRIT 35.3 % (42.0-52.0); HEMOGLOBIN 11.6 gm/dL (14.0-18.0); MCH 33.4 pg (26.0-34.0); MCHC 32.8 g/dL (28.0-37.0); MCV 101.8 fL (80.0-100.0); MPV 8.9 fl. (7.2-11.1); NUCLEATED RBCS 0 /100WBC; PLATELET COUNT* 115 thou/uL (150-400); RBC 3.46 mil/uL (4.50-6.00); RDW-CV 20.1 % (10.5-14.5); WBC 5.6 thou/uL (4.0-11.0)
[2018-05-17 18:17] LABS: BE 6.2 mmol/L (-2 to +3); HCO3 30.1 mmol/L (22.0-26.0); PCO2 40.6 mmHg (35.0-45.0); PO2 73.6 mmHg (75.0-100.0); pH 7.488 (7.340-7.450)
[2018-05-17 18:22] LABS: CALCIUM 9.2 mg/dL (8.5-10.1); CREATININE 3.4 mg/dL (0.6-1.3); POTASSIUM 5.6 mmol/L (3.5-5.1)
[2018-05-17 18:34] LABS: ALBUMIN 3.2 g/dL (3.4-5.0); MAGNESIUM 1.9 mg/dL (1.8-2.4); TOTAL BILIRUBIN 0.9 mg/dL (<0.1-1.0)
[2018-05-17 18:41] LABS: ABSOLUTE BASOPHILS 0.1 thou/uL (0.0-0.2); ABSOLUTE EOSINOPHILS 0.1 thou/uL (0.0-0.7); ABSOLUTE LYMPHOCYTES 0.3 thou/uL (0.8-5.3); ABSOLUTE MONOCYTES 0.2 thou/uL (0.0-1.2); ABSOLUTE NEUTROPHILS 4.9 thou/uL (1.6-8.1); PLATELET ESTIMATE ADEQUATE
[2018-05-17 19:30] LABS: URINE BILIRUBIN NEGATIVE (Negative); URINE BLOOD NEGATIVE (Negative); URINE CLARITY CLEAR; URINE COLOR YELLOW; URINE GLUCOSE-RANDOM NEGATIVE (Negative); URINE KETONES NEGATIVE (Negative); URINE LEUKOCYTES-REFLEX NEGATIVE (Negative); URINE NITRITE-REFLEX NEGATIVE (Negative); URINE PROTEIN 2+ (Negative); URINE SPECIFIC GRAVITY 1.015 (1.005-1.030); URINE UROBILINOGEN 0.2 E.U./dl (0.2-1.0)
[2018-05-17 19:35] LABS: SQUAMOUS NONE SEEN /LPF (0-3)
[2018-05-17 19:36] LABS: BACTERIA-REFLEX None Seen /HPF (None Seen); CASTS None Seen /LPF (None Seen); CRYSTALS None Seen /LPF (None Seen); URINE RBC None Seen /HPF (0-2); URINE WBC-REFLEX None Seen /HPF (0-5)
[2018-05-17 19:38] LABS: NT-PRO BRAIN NAT PEPTIDE 7 pg/mL (<300); TROPONIN-I LEVEL 0.09 ng/mL (<0.06)
[2018-05-17 19:39] LABS: PHOSPHORUS* < 0.1 mg/dL (2.5-4.9)
[2018-05-17 20:30] VITALS: BP 117/65
[2018-05-17 20:40] VITALS: BP 140/71
[2018-05-17] MEDS ORDERED: ASPIR 8181 MG PO (21:06)
[2018-05-17] MEDS ORDERED: RENAL VITAMIN0.8 MG (21:06)
--- NOTE | 2018-05-17 23:20 | NUR ---
78 Y/O MALE ADMITTED TO ROOM 213 WITH AN ADMITTING DIAGNOSIS OF PNUEMONIA. PT HAS A HX OF HTN, HYPOTHYROIDISM, ESRD WITH DIALYSIS, CARDIOVERSION, ANEMIA, PNEUMONIA, VASCULITIS, AFIB, PULMONARY FIBROSIS. PT DENIES PAIN, N/V/D, SOA. TRACING AFIB ON MONITOR. PT IS UP ADLIB TO BR WITH STEADY GAIT, ALERT & ORIENTED X4. HOURLY ROUNDING FOR SAFETY. CLWR.
[2018-05-17 23:34] VITALS: BP 132/72
[2018-05-18 04:47] VITALS: BP 137/73
--- NOTE | 2018-05-18 05:07 | NUR ---
PT AWAKE FOR MOST OF THIS SHIFT. VSS. TRACING AFIB ON MONITOR. NO CONCERNS AT THIS TIME. CLWR.
[2018-05-18 08:00] VITALS: BP 143/81
[2018-05-18 11:30] VITALS: BP 126/84
--- NOTE | 2018-05-18 13:44 | EKG ---
[place] [address] ELECTROCARDIOGRAM REPORT Name: JOURDAN CRAVEN Room: [address] IN [facility]#: [id number] Admission: 05/17/18 Attend Phys: Stu Vickers Discharge: Date of : 40 Report #: [id number] THIS REPORT FOR: //name// [facility] ED Test Date: 2018-05-17 Test Time: 17:48:38 Pat Name: JOURDAN CRAVEN Department: Room: Gender: M Pooling Operator: KAILEY : 1940 Requested By: Order Number: [id number] Merritt MD: Apollo Napier Measurements Intervals [place] Rate: 116 P: SC: QRS: 29 QRSD: 87 T: 49 QT: 318 QTc: 442 Interpretive Statements Atrial fibrillation Borderline T abnormalities, lateral leads Compared to ECG 09/19/2017 11:00:50 T-wave abnormality now present Sinus rhythm no longer present Atrial premature complex(es) no longer present Atrial abnormality no longer present Early repolarization no longer present Electronically Signed On 05-18-2018 13:44:09 DRAWING KILN SUPERVISOR by Apollo Napier [email or web address] <ELECTRONICALLY SIGNED> By: Apollo Napier MD, [facility] 05/18/18 1344 1748 1748 Apollo Napier MD, [facility] /EPI
--- NOTE | 2018-05-18 13:47 | NUR ---
RD consult received for pt on renal diet with dialysis. Recently discharge last month, readmitted with pneumonia. intermediate designer dialysis pt, aware of diet. Wts stable in 160s for several months. No nutrition intervention at this time. Continue renal diet. Low nutrition risk.
[2018-05-18 15:22] VITALS: BP 135/89
--- NOTE | 2018-05-18 15:45 | NUR ---
Pt is A&O. Resides at home with his . Pt is independent and active. Current with [facility]. Pt wears home o2 at [facility] only. No hx of HH or SNF. Goal is home at [place], no needs anticipated. CM will fax flowsheets at [place].
--- NOTE | 2018-05-18 16:49 | 2DMMODE ---
[place] [address] 2 D/M-MODE ECHOCARDIOGRAM Name: JOURDAN CRAVEN Room: [address] IN [facility]#: [id number] Admission: 05/17/18 Attend Phys: Louie Cobos Discharge: Date of : 40 Date of Service: 05/18/18 1649 Report #: [id number] THIS REPORT FOR: //name// APPROVED REPORT Study performed: 05/18/2018 15:03:41 EXAM: Comprehensive 2D, Doppler, and color-flow Echocardiogram Patient Location: In-Patient Room #: [facility] Status: routine BSA: 1.93 HR: 116 bpm BP: 126/84 mmHg Rhythm: Atrial Fibrillation Other Information Study Quality: Good Indications Atrial Fibrillation Dyspnea 2D Dimensions IVSd: 13.32 (7-11mm) LVOT Diam: 21.70 (18-24mm) LVDd: 50.08 mm PWd: 12.20 (7-11mm) Ascending Ao: 32.87 (22-36mm) LVDs: 41.83 (25-40mm) Aortic Root: 34.02 mm Volumes Left Atrial Volume (Systole) LA ESV Index: 62.60 mL/m2 Aortic Valve AoV Peak Kei.: 1.74 m/s AO Peak Gr.: 12.16 mmHg LVOT Max P.01 mmHg AO Mean Gr.: 7.17 mmHg LVOT Mean P.46 mmHg LVOT Max V: 0.87 m/s AO V2 VTI: 27.40 cm LVOT Mean V: 0.55 m/s BEKA (VTI): 2.12 cm2 LVOT V1 VTI: 15.69 cm TDI Lateral E' Kei.: 0.11 m/[place] [address] 2 D/M-MODE ECHOCARDIOGRAM Name: JOURDAN CRAVEN Room: [address] IN ..#: [id number] Admission: 05/17/18 Attend Phys: Louie Cobos Discharge: Date of : 40 Date of Service: 05/18/18 1649 Report #: [id number] Pulmonary Valve PV Peak Kei.: 0.83 m/s PV Peak Gr.: 2.76 mmHg Tricuspid Valve RAP Estimate: 15.00 mmHg TR Peak Gr.: 41.93 mmHg RVSP: 56.00 mmHg PA Pressure: 56.00 mmHg Left Ventricle The left ventricle is normal size. There is normal LV segmental wall motion. Mild concentric left ventricular hypertrophy. Left ventricular systolic function is normal. The left ventricular ejection fraction is within the normal range. LVEF is 50%. This study is not technically sufficient to allow evaluation of the LV diastolic function due to atrial fibrillation. Right Ventricle Right ventricle is dilated. Right ventricle is moderately hypokinetic. Atria Left atrium is severely dilated. Right atrium is dilated. Aortic Valve The aortic valve is normal in structure. Moderate aortic regurgitation. There is no aortic valvular stenosis. Mitral Valve There is mitral annular calcification. Mild mitral regurgitation. No evidence of mitral valve stenosis. Tricuspid Valve The tricuspid valve is normal in structure. severe tricuspid regurgitation. Moderate pulmonary hypertension. Pulmonic Valve The pulmonary valve is normal in structure. Trace pulmonic regurgitation. Great Vessels The aortic root is normal in size. IVC is dilated and collapses <50% with inspiration. Pericardium There is [place] [address] 2 D/M-MODE ECHOCARDIOGRAM Name: JOURDAN CRAVEN Room: [address] IN [facility]#: [id number] Admission: 05/17/18 Attend Phys: Louie Cobos Discharge: Date of : 40 Date of Service: 05/18/18 1649 Report #: [id number] <Conclusion> LVEF is 50%. There is normal LV segmental wall motion. Left atrium is severely dilated. Right atrium is dilated. Right ventricle is dilated. Right ventricle is moderately hypokinetic. Moderate aortic regurgitation. There is no aortic valvular stenosis. Mild mitral regurgitation. No evidence of mitral valve stenosis. severe tricuspid regurgitation. Moderate pulmonary hypertension. IVC is dilated and collapses <50% with inspiration. <ELECTRONICALLY SIGNED> By: Apollo Napier MD, FACC 05/18/181648 48 48 Apollo Napier MD, FACC /INF
--- NOTE | 2018-05-18 19:23 | NUR ---
PT TOLERATING DIET THIS SHIFT. PT AOX4 AND COOPERATIVE. NEPHROLOGY CONSULTED AND PT CONCERNED REGARDING DIALYSIS TOMORROW. PT HAS ELEVATED POTASSIUM AND NEW ORDERS PLACED THIS SHIFT FOR INCREASED HR DUE TO AFIB STATUS AND CARDIOLOGY CONSULT. NO NEW CONCERNS AT THIS TIME. NOC SHIFT HERE AND REPORT GIVEN.
[2018-05-18 20:11] VITALS: BP 141/82
[2018-05-19 00:23] VITALS: BP 133/74
[2018-05-19 04:41] VITALS: BP 94/70
[2018-05-19 05:09] LABS: HEMATOCRIT 27.8 % (42.0-52.0); MCH 33.9 pg (26.0-34.0); MCHC 33.4 g/dL (28.0-37.0); MCV 101.7 fL (80.0-100.0); MPV 9.8 fl. (7.2-11.1); RBC 2.73 mil/uL (4.50-6.00); RDW-CV 19.7 % (10.5-14.5); WBC 6.8 thou/uL (4.0-11.0)
[2018-05-19 05:32] LABS: HEMOGLOBIN 9.3 gm/dL (14.0-18.0)
--- NOTE | 2018-05-19 05:56 | NUR ---
ASSUMED PT CARE AT 1930, PT IS A&OX4, TRACING AFIB ON THE MONITOR ON 2L NC. PT DENIES ANY PAIN OR NEEDS AT THIS TIME. PT IS UP AD MARIBEL IN HIS ROOM AND APPEARS STABLE ON HIS FEET., PT RESTED WELL THROUGHOUT THE NIGHT. BED IN LOW POSITION, CALL LIGHT IN REACH HOURLY ROUNDING COMPLETED FOR PT SAFETY.
[2018-05-19 06:05] LABS: CALCIUM 8.4 mg/dL (8.5-10.1); MAGNESIUM 1.9 mg/dL (1.8-2.4); POTASSIUM 5.3 mmol/L (3.5-5.1)
[2018-05-19 06:07] LABS: CREATININE 6.2 mg/dL (0.6-1.3)
[2018-05-19 08:00] VITALS: BP 137/75
[2018-05-19 12:00] VITALS: BP 125/58
[2018-05-19] MEDS ORDERED: LASIX 40 MG TAB40 M2 PO (12:35)
--- NOTE | 2018-05-19 15:11 | NUR ---
If Pt is ready to dc over the weekend, fax H&P and flowsheets to [facility] f:[phone]
--- NOTE | 2018-05-19 15:46 | NUR ---
pt to dialysis at 1300
--- NOTE | 2018-05-19 18:51 | NUR ---
PT UP IN CHAIR FOR DINNER AFTER DIALYSIS, NO COMPLAINTS.
[2018-05-19 20:20] VITALS: BP 133/69
[2018-05-20] VITALS: BP 142/76
[2018-05-20 02:06] LABS: HEPATITIS B SURFACE AG Negative (Negative)
[2018-05-20 04:00] VITALS: BP 130/78
--- NOTE | 2018-05-20 05:43 | NUR ---
VSS. BILATERAL ANKLE/PEDAL EDEMA 2+. PT HAS DENIES PAIN, SOA, AND ANY OTHER DISCOMFORT THROUGH THE NIGHT. UP TO BATHROOM INDEPENDENTLY, STEADY GAIT. CALL LIGHT WITHIN REACH.
[2018-05-20 05:51] LABS: CALCIUM 8.5 mg/dL (8.5-10.1); CREATININE 4.3 mg/dL (0.6-1.3); PHOSPHORUS* 5.6 mg/dL (2.5-4.9)
[2018-05-20 08:00] VITALS: BP 135/66
[2018-05-20 11:43] VITALS: BP 131/72
--- NOTE | 2018-05-20 13:28 | CON ---
[address] [address] CONSULTATION Name: HERBERJOURDAN Maximino Room: [address] IN .R.#: [id number] Admission: 05/17/18 Attend Phys: Stu Vickers Discharge: Date of : 40 Report #: [id number] THIS REPORT FOR: //name// CC: Maureen Sprague DATE OF SERVICE: 05/19/2018 CARDIOLOGY CONSULTATION HISTORY OF PRESENT ILLNESS: The patient is a 78-year-old white male who I was asked to see in the hospital today because of his atrial fibrillation. The patient has an extensive and complicated past medical history. He apparently developed end-stage renal disease about 8 years ago and has been on hemodialysis. He currently has a fistula in place and goes Tuesday, Tuesday, Tuesday. He also has a history of coronary artery disease and had several stents placed at [place] several years ago. He also has a history of atrial fibrillation, was cardioverted several times at [place]. He has been chronically anticoagulated. He was on amiodarone in the past. Recently, he has been followed by my partner, Dr. Cartagena. His last hospitalization here at [facility] was in September when he presented with pneumonia. He was noted to be in atrial fibrillation at that time. The patient is not very active. He came to the Emergency Room 2 days ago. He has been short of breath and coughing. He was admitted for further evaluation and treatment. PAST MEDICAL HISTORY: He has had no major surgical procedures. He does have a history of hypertension, renal failure, chronic anemia. He apparently has pulmonary fibrosis and a history of vasculitis. No history of diabetes. MEDICATIONS AT HOME: Consists of albuterol inhaler, Eliquis, Lasix, Synthroid, amlodipine, Hytrin. ALLERGIES: HE HAS AN INTOLERANCE TO PLAVIX. FAMILY HISTORY: Negative for heart disease. SOCIAL HISTORY: He is , lives in [place]. 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 He quit smoking years ago and rarely drinks alcohol. REVIEW OF SYSTEMS: He has had no history of stroke. He does have asthma. No history of peptic ulcer disease, liver disease, cancer or psychiatric illness. He does have a history of shingles. PHYSICAL EXAMINATION: GENERAL: Revealed an elderly male who appeared in no distress, [place] [address] CONSULTATION Name: JOURDAN CRAVEN Maximino Room: [address]#: [id number] Admission: 05/17/18 Attend Phys: Stu Vickers Discharge: Date of : 40 Report #: [id number]. VITAL SIGNS: His blood pressure is 120/70, pulse is 90, he is afebrile. HEENT: He is anicteric. Conjunctivae pale. Mucous members are dry. NECK: Neck veins do not appear distended. CHEST: No coarse breath sounds. CARDIOVASCULAR: Irregular rhythm. ABDOMEN: Soft. EXTREMITIES: Had trace edema. Dorsalis pedis pulse cannot be palpated. SKIN: Cool and dry. NEUROLOGIC: Nonfocal. The patient had an echocardiogram done yesterday that showed ejection fraction of 50%, left atrial enlargement. Right ventricle is dilated, moderate aortic insufficiency, mild mitral regurgitation, severe tricuspid insufficiency with moderate pulmonary hypertension. His x-rays, he had a portable chest x-ray that showed bilateral infiltrates consistent with pulmonary fibrosis, cardiomegaly. LABORATORY DATA: Sodium 137, BUN 59, creatinine 6.2, glucose 202. His liver function studies were normal. Troponin 0.09. BNP 7. His white blood cell count 6.8, hemoglobin 9.3. IMPRESSION AND RECOMMENDATIONS: 1. Atrial fibrillation. I would not recommend repeat efforts at cardioversion. I would aim for rate control. The patient's rate seems to be somewhat increased. I would recommend adding diltiazem for rate control. 2. End-stage renal disease. The patient is on dialysis. 3. History of vasculitis. 4. Pulmonary hypertension. 5. Chronic anemia. 6. Coronary artery disease. Previous stenting. No recent angina. <ELECTRONICALLY SIGNED> By: Solitario Rico MD, FACC 05/20/18 1328 1747 [id number] Rico MD, FACC /nt
--- NOTE | 2018-05-20 19:50 | NUR ---
I ASSUMED CARE OF THE PATIENT AT 0700. HE IS ALERT AND ORIENTED X4 AND IS UP WITH SBA. HOURLY ROUNDING WAS COMPLETED AND PATIENT NEEDS WERE MET. PAIN IS DENIED. BED IS IN THE LOW LOCKED POSITION AND CALL LIGHT IS IN REACH. PATIENT IS CONCERNED WITH WHERE HE WILL BE ON TUESDAY FOR DIALYSIS. WILL CONTINUE TO MONITOR.
[2018-05-20 20:25] VITALS: BP 133/70
[2018-05-20 23:57] VITALS: BP 129/64
[2018-05-21 05:35] LABS: HEMOGLOBIN 8.9 gm/dL (14.0-18.0); MCH 34.3 pg (26.0-34.0); MCV 100.9 fL (80.0-100.0); MPV 9.2 fl. (7.2-11.1); RBC 2.58 mil/uL (4.50-6.00); RDW-CV 18.9 % (10.5-14.5); WBC 6.4 thou/uL (4.0-11.0)
[2018-05-21 05:47] LABS: CALCIUM 8.6 mg/dL (8.5-10.1); POTASSIUM 5.3 mmol/L (3.5-5.1)
[2018-05-21 06:00] LABS: CREATININE 5.8 mg/dL (0.6-1.3)
--- NOTE | 2018-05-21 07:34 | NUR ---
Pt reports he rested well overnight. VSS. This am pt discovered blood on R upper arm and gown. Source of blood is a skin tear over R biceps. Cleaned area and placed border dressing. IV out in RAC due to repeated bending of arm. Unsuccessful with new IV start X2 attempts. Passed on to day shift RN. Will continue to monitor.
[2018-05-21 08:00] VITALS: BP 145/56
--- NOTE | 2018-05-21 10:31 | CON ---
[address] [address] CONSULTATION Name: HERBERJOURDAN Maximino Room: [address] IN .R.#: [id number] Admission: 05/17/18 Attend Phys: Stu Vickers Discharge: Date of : 40 Report #: [id number] THIS REPORT FOR: //name// CC: Maureen Sprague DATE OF SERVICE: 05/20/2018 REQUESTING PHYSICIAN: Dr. Andie Herrera. REASON FOR CONSULTATION: Pneumonia. DISCUSSION: The patient is a 78-year-old man who has a history of remote tobacco abuse. His history is significant for end-stage renal disease and p-ANCA vasculitis. That has been diagnosed only 7-8 years ago and had been on immunosuppressives in the past. He has had several episodes of pneumonia. He was hospitalized here a little over a month ago where he was treated for pneumonia. He had some initial improvement on radiographs and clinically once he was discharged. However, he began having more problems with shortness of breath. He was having more cough. He was not aware of any definite fevers at home. He was evaluated initially in Outpatient Clinic in [place]. Apparently, his O2 saturations were in the 70s (he is not normally on O2 during the day, but only at night). They sent him over to the ED here. He was evaluated. X-rays were done, which revealed some increase infiltrates. It is not clear if that was fluid or pneumonia. O2 saturations were low. Was admitted. He has been started on broad-spectrum antibiotics. Clinically, he is feeling much better today. He has been moving around, notes feeling closer to his baseline. Since admission, he has had some mild tachycardia. T-max was 99.1, was several days ago. It was 99 yesterday. At this time, his cough is much improved. He is no longer coughing up any sputum. He does not follow regularly at this time with weft straightener nor marble helper. In fact, he has never seen a marble helper. He has a history of p-ANCA vasculitis as noted. Currently, at the time of diagnosis, he had presented with hemoptysis. I believe much of his initial evaluation at that time was done at [facility]. At home, he is now wearing oxygen at night. Does have a nebulizer at home. He has been doing budesonide twice a day and the DuoNeb generally 4 times a day. He had completed a round of antibiotics and steroids given to him when he was hospitalized last month. Reviewing the records here at [place], last CT chest was spring. He does not believe he has had any other CT chest done in [place] [address] CONSULTATION Name: LEO CRAVENCLOTILDE Stanton Room: [address] IN .R.#: [id number] Admission: 05/17/18 Attend Phys: Stu Vickers Discharge: Date of : 40 Report #: [id number] PAST MEDICAL HISTORY: Remarkable for the end-stage renal disease. He is on chronic hemodialysis and sees Dr. Olmedo for that. P-ANCA vasculitis. When he was here last spring, serologies at that time were low. Since a history of atrial fibrillation, he has been on chronic anticoagulation therapy for that. Nonischemic cardiomyopathy as well as known coronary artery disease. Did have stents placed in the past at [facility]. Also, has history of hypothyroidism, hypertension, and anemia due to chronic disease. ALLERGIES: HE HAS ALLERGIES TO PLAVIX AND SULFA. SOCIAL HISTORY: Former smoker, quit smoking greater than 20 years ago. Occasionally uses alcohol. FAMILY HISTORY: Positive for lung cancer. REVIEW OF SYSTEMS: A 12-point ROS was done. Note positives above. He denies any change in his appetite. He has not had any difficulty swallowing. No nausea or vomiting. Occasionally, had some mild lower extremity edema, but none recently. Not aware of any definite palpitations. No syncopal episodes. His energy level is much improved. He was feeling very run-down. Do note, he has had the flu shot for the season. He has also had the Pneumovax. Due to the holidays, he may have been around other ill contacts. PHYSICAL EXAMINATION: GENERAL APPEARANCE: A male who looks comfortable. He is resting in bed with O2 running via nasal cannula. He is alert, conversant, able to speak in full sentences and is in no acute distress. HEENT: Head is normocephalic and atraumatic. Sclerae nonicteric. Mucous membranes are little dry. NECK: Negative for adenopathy. No JVD is noted. HEART: Regular with periods of irregularity. No S3 is heard. He has a grade 1-2/6 systolic murmur. LUNGS: Reveal breath sounds to be mildly diminished. He has bibasilar Velcro sounding crackles. He does have some other rhonchi heard. Excursion appears equal. There is no dullness to percussion and no E:A changes. He has no CVA tenderness. ABDOMEN: Soft, without appreciable hepatosplenomegaly. No guarding. EXTREMITIES: Lower extremities, negative for edema. He has no clubbing. SKIN: Warm and dry. NEUROLOGIC: He is alert and oriented x 3. Moving all extremities. LABORATORY AND X-RAY FINDINGS: Chest x-ray done yesterday does show what appears to be a right pleural effusion. Consolidative changes seen right lower lung field. They do look more prominent than studies done previously. Blood cultures done this admission are negative. Sputum culture [place] [address] CONSULTATION Name: JOURDAN CRAVEN Room: [address] IN [facility]#: [id number] Admission: 05/17/18 Attend Phys: Stu Vickers Discharge: Date of : 40 Report #: [id number] he was here did grow out Moraxella catarrhalis. On his chemistry, his potassium is 5.0, BUN of 41, creatinine of 4.3. His bicarbonate was 29. Troponin is minimally elevated at 0.09. P-ANCA is pending. White blood cell count 6800, hemoglobin 9.3, hematocrit 27.8, MCV is 102, his platelets are 76,000. Arterial blood gases done when he came in on 2 liters, he had a pH 7.49, pCO2 of 41, pO2 of 74, bicarbonate 30 with a saturation of 93%. Last echocardiogram, which was done this month revealed mild concentric LVH. Systolic function was normal with an EF estimated to be around 50%. Was in atrial fibrillation. RV was dilated and RV was moderately hypokinetic. He had mild mitral regurgitation. Moderate pulmonary hypertension. Also had moderate aortic regurgitation. No aortic stenosis. CURRENT MEDICATIONS: At this time are Lasix given 4 days per week, Coreg, amiodarone, diltiazem, Eliquis, calcium, levofloxacin, budesonide twice a day, methylprednisolone 62.5 mg IV every 8 hours, terazosin, levothyroxine, docusate, DuoNeb every 4 hours, Zosyn, guaifenesin. IMPRESSION: 1. Pulmonary infiltrates consistent with pneumonia. He was ill last month, had improved, though not back to his baseline. More than likely, he had a new infection probably related to exposures over the holidays. Clinically, he is improving. 2. History of p-ANCA vasculitis. Has had a considerable amount of fibrotic changes noted on his x-rays, most likely related to prior infections as well as a vasculitis. More recent studies more consistent with consolidative changes and pleural effusion, though the exact size is not clearly defined on the plain chest film. 3. End-stage renal disease. He has been on chronic hemodialysis for greater than 5 years. 4. Atrial fibrillation, is chronically anticoagulated. 5. Development of some pulmonary hypertension. Some of this could be related to his valvular heart disease. 6. Thromboembolic disease is less likely given the fact he is chronically anticoagulated. Could also be related to underlying progressive lung disease. 7. History of p-ANCA vasculitis. Serologies done last spring were negative. He has been off all immunosuppressive therapies for greater than a year. 8. Thrombocytopenia, is relatively new. Could be drug related. RECOMMENDATIONS: 1. Wean daytime O2 as tolerated. 2. Noncontrast CT of his chest. If he does have a significant pleural effusion, consider holding Eliquis for several days and proceeding with the thoracentesis. 3. Await p-ANCA levels. [address] [place] [address] CONSULTATION Name: JOURDAN CRAVEN Room: M.213-P ADM IN M.R.#: [id number] Admission: 05/17/18 Attend Phys: Stu Vickers Discharge: Date of : 40 Report #: [id number] 4. Follow up labs, CRP, etc. in the morning. 5. Continue with bronchodilator therapy and IV steroids. <ELECTRONICALLY SIGNED> By: Marlena Win MD 05/21/18 1031 0807 [id number] Win MD /nt
[2018-05-21 15:50] VITALS: BP 144/57
--- NOTE | 2018-05-21 16:16 | NUR ---
PT HAS NO IV ACCESS, MULTIPLE ATTEMPTS WERE MADE, SPOKE WITH DR KIRK, MIDLIINE ORDER WAS PLACED, HOWEVER, PT IS A DIALYSIS PT AND PICC NURSE UNABLE TO PLACE MIDLINE, SPOKE WITH DR KIRK AGAIN AND SHE SAID TO CALL NURSING LINE ASSIGNER. NURSING LINE ASSIGNER TO CALL THE [facility] VASCULAR ACCESS TEAM AND SEE IF THEY CAN HELP WITH OBTAINING ACCESS.
[2018-05-21 20:00] VITALS: BP 133/58
[2018-05-21 23:57] VITALS: BP 144/59
--- NOTE | 2018-05-22 04:37 | NUR ---
PATIENT REMAINS STABLE THIS SHIFT, VSS ON 2L O2 NC. PATIENT DENIES PAIN AND DISCOMFORT, BUT DID NOT REST WELL. PATIENT STATES "I AM ALWAYS UP ALOT DURING THE NIGHT." PATIENT AWAITING DIALYSIS TODAY. RIGHT UPPER DRESSING SATURATED WITH BLOOD. DRESSING REINFORCED WITH KERLIX BANDAGE AND STELLA. CALL LIGHT WITHIN REACH
[2018-05-22 05:27] LABS: HEMOGLOBIN 9.3 gm/dL (14.0-18.0); MCH 34.6 pg (26.0-34.0); MCHC 34.5 g/dL (28.0-37.0); MCV 100.2 fL (80.0-100.0); MPV 9.3 fl. (7.2-11.1); NUCLEATED RBCS 0 /100WBC; PLATELET COUNT* 82 thou/uL (150-400); RBC 2.69 mil/uL (4.50-6.00); RDW-CV 19.1 % (10.5-14.5); WBC 7.3 thou/uL (4.0-11.0)
[2018-05-22 05:50] LABS: CALCIUM 8.3 mg/dL (8.5-10.1); POTASSIUM 5.6 mmol/L (3.5-5.1)
[2018-05-22 06:01] LABS: CREATININE 7.1 mg/dL (0.6-1.3)
[2018-05-22 07:00] LABS: ABSOLUTE LYMPHOCYTES 0.3 thou/uL (0.8-5.3); ANISOCYTOSIS 1+; ATYPICAL LYMPHS 3 %; PLATELET ESTIMATE DECREASED
[2018-05-22 08:04] VITALS: BP 130/55
[2018-05-22 12:00] VITALS: BP 138/57
--- NOTE | 2018-05-22 18:47 | NUR ---
VSS, ASSUMED CARE OF PT THIS AM, ASSESSMENT PERFORMED AND CHARTED, FALL PRECAUTIONS IN PLACE AND CALL LIGHT IN REACH, PT IS A&O4 AND UP AD MARIBEL, PT DENIES ANY PAIN, HE IS MED SURG STATUS, ON RA, WEARS 2L NC PRN, PT GOAL IS TO HAVE DIALYSIS AND SAFETY IMPROVE BREATHING, ALL GOALS MET, PT IS STILL UP IN DIALYSIS, HOURLY ROUNDS COMPLETED,
[2018-05-22 19:58] VITALS: BP 171/86
--- NOTE | 2018-05-23 00:40 | NUR ---
PATIENT ADMITTED TO ROOM 102 FROM TELEMETRY. REPORT GIVEN FROM TENNIS BALL COVER CEMENTER TELEMETRY NURSE. PATIENT IS ALERT AND ORIENTED X 4. VSS ON RA. ORTHO NURSE AGREES WITH ASSESSMENT. PATIENT ORIENTED TO UNIT AND INSTRUCTED TO USE CALL LIGHT WHEN NEEDING ASSISTANCE. HOURLY ROUNDS TO BE MADE. WILL CONTINUE WITH PLAN OF CARE AND NURSING TO MONITOR.
--- NOTE | 2018-05-23 05:53 | NUR ---
PATIENT HAS SLEPT WELL THROUGHOUT THE NIGHT SINCE TRANSFERRING TO UNIT. VSS ON RA. NO C/O PAIN. IV IN RIGHT FOREARM-SL. PATIENT INSTRUCTED TO USE CALL LIGHT WHEN NEEDING ASSISTANCE, BUT IS UP AD-MARIBEL AND STEADY ON FEET. HOURLY ROUNDS MADE. WILL CONTINUE TO MONITOR.
[2018-05-23 08:00] VITALS: BP 173/84
[2018-05-23 12:00] VITALS: BP 175/78
--- NOTE | 2018-05-23 15:19 | NUR ---
PT.CONTINUES TO PLAN TO RETURN HOME WITH AT DISCHARGE. SHE CAN AAIST HIM NEEDED. WILL FOLLOW.
[2018-05-23 16:42] VITALS: BP 184/70
--- NOTE | 2018-05-23 18:20 | NUR ---
PT IS ALERT AND ORIENTED X 4. DENIES PAIN AND NAUSEA. LUNGS COARSE-WHEEZES. SKIN TEAR PRESENT ON RIGHT UPPER ARM. IV PATENT. FISTULA IN LEFT ARM. PT USES OXYGEN AT NIGHT ONLY @ 2 L/NC. HOURLY ROUNDS MAINTAINED. WILL USE CALL LIGHT FOR ASSISTANCE.
[2018-05-23 19:00] VITALS: BP 179/93
[2018-05-24 02:30] VITALS: BP 150/83
[2018-05-24 04:46] LABS: HEMATOCRIT 25.8 % (42.0-52.0); HEMOGLOBIN 8.9 gm/dL (14.0-18.0); MCH 34.4 pg (26.0-34.0); MCHC 34.6 g/dL (28.0-37.0); MCV 99.5 fL (80.0-100.0); MPV 8.2 fl. (7.2-11.1); RBC 2.59 mil/uL (4.50-6.00); WBC 6.6 thou/uL (4.0-11.0)
[2018-05-24 04:52] LABS: CALCIUM 8.2 mg/dL (8.5-10.1); CREATININE 6.1 mg/dL (0.6-1.3); MAGNESIUM 1.8 mg/dL (1.8-2.4); POTASSIUM 5.4 mmol/L (3.5-5.1)
--- NOTE | 2018-05-24 06:33 | NUR ---
PT MAINTAINED O2 SAT > 94% ON O2 AT 2 LITERS. VITAL SIGNS WITHIN NORMAL LIMITS. NO ACUTE CHANGES, WILL CONTINUE TO MONITOR.
[2018-05-24 08:00] VITALS: BP 178/78
[2018-05-24] MEDS ORDERED: CARVEDILOL12.5 MG PO (08:05)
[2018-05-24] MEDS ORDERED: LEVAQUIN 750 M750 MG PO (08:05)
[2018-05-24] MEDS ORDERED: CARDIZEM CD240 MG PO (08:05)
[2018-05-24] MEDS ORDERED: PREDNISONE10 MG PO (08:05)
[2018-05-24] MEDS ORDERED: CALCIUM ACETAT667 MG PO (08:05)
[2018-05-24 10:08] LABS: HEPATITIS B SURFACE AG Negative (Negative)
--- NOTE | 2018-05-24 17:16 | NUR ---
PT.DOES NOT QUALIFY FOR HOME O2 PER LUANA/RESP.THERAPY. FAXED DIALYISIS FLOW SHEETS TO [facility]. TO BE DISCHARGED TODAY.
[2018-05-24 17:19] VITALS: BP 178/78
[2018-05-24 17:21] VITALS: BP 178/78
[2018-05-24 17:48] VITALS: BP 178/78
--- NOTE | 2018-05-24 18:20 | NUR ---
PT ALERT AND ORIENTED X 4. DENIES NAUSEA. INDICATED PAIN LEFT LEG. RECEIVED HYDRODONDONE FOR PAIN CONTROL. PT UP WITH THERAPY. PT PLACED ON OXYGEN @ 2 L/NC DUE TO LOW OXYGEN SAT OF 88%. DISCHARGE INSTRUCTIONS/ MEDICAL INFORMATION GIVEN TO TRANSPORTER. IV REMOVED IN BOTH RIGHT AND LEFT FA. PT LEFT WITH PERSONAL BELONGINGS BY WHEEL CHAIR WITH TRANSPORTER @ 3211 TO LEAVE BY WHEEL CHAIR VAN.
--- NOTE | 2018-05-25 08:18 | CON ---
[address] [address] CONSULTATION Name: JOURDAN CRAVEN Maximino Room: [address] IN ..#: [id number] Admission: 05/17/18 Attend Phys: Stu Vickers Discharge: 05/24/18 Date of : 40 Report #: [id number] THIS REPORT FOR: //name// CC: Maureen Sprague DATE OF SERVICE: 05/23/2018 INDICATION: Persistent atrial fibrillation and medical treatment. HISTORY OF PRESENT ILLNESS: The patient is a 78-year-old gentleman well known to myself. I see him in the office for his atrial fibrillation. He had been having paroxysmal atrial fibrillation, fairly well controlled with amiodarone for many years. At this time, he is back in atrial fibrillation. For the past several months, he has been having pulmonary complications with pneumonia. He also has a history of perhaps some rheumatologic pulmonary issues as well. He is not having any chest pain. He has some shortness of breath that is improving with treatment with antibiotics and steroids. He is chronically anticoagulated and having no bleeding problems. PAST MEDICAL HISTORY: 1. Atrial fibrillation, which now appears chronic and persistent. 2. Hypertension. 3. Chronic renal failure, on dialysis. 4. Chronic anemia. 5. History of vasculitis. HOME MEDICATIONS: Albuterol, Eliquis, Lasix, Synthroid, amlodipine and Hytrin. FAMILY HISTORY: Noncontributory. ALLERGIES: INTOLERANCE TO PLAVIX. SOCIAL HISTORY: He is . [place] He quit smoking many years ago. Drinks alcohol rarely. REVIEW OF SYSTEMS: Noncontributory. PHYSICAL EXAMINATION: VITAL SIGNS: Blood pressure 184/70, pulse 82. GENERAL: This is a pleasant gentleman in no distress. Mood and affect appropriate. HEENT: The patient is wearing glasses. Extraocular muscles intact. Mucous membranes are moist. NECK: Shows no jugular venous distention. There [place] [address] CONSULTATION Name: HERBERJOURDAN Maximino Room: [address] IN [facility].#: [id number] Admission: 05/17/18 Attend Phys: Stu Vickers Discharge: 05/24/18 Date of : 40 Report #: [id number] CHEST: Reveals diffusely decreased breath sounds with coarse breath sounds bilaterally. CARDIOVASCULAR: Reveals an irregularly irregular rhythm. ABDOMEN: Reveals normal bowel sounds. EXTREMITIES: Shows 2+ pedal and ankle edema. IMPRESSION AND RECOMMENDATIONS: 1. Persistent atrial fibrillation. I would be in favor of discontinuing amiodarone at this point, since it is hard to tell whether or not this could be contributing to his pulmonary issues and he is not maintaining sinus rhythm. Would substitute alternate medications for rate control including diltiazem and digoxin. 2. Hypertension. Blood pressure is significantly elevated. We will treat with rate controlling medications. 3. End-stage renal disease, on dialysis per Nephrology. 4. Pneumonia. The patient currently receiving IV antibiotics and steroids. Would continue as outlined above. <ELECTRONICALLY SIGNED> By: Norbert Cartagena MD, FACC 05/25/18 0818 [id number] Cartagena MD, FACC /nt
== END 2018-05-24 17:48 | disposition home or self-care (01) | DRG 177 ==
LOC: M.ERS 17:06 → M.TBA-ER 19:15 → M.2W 19:15 → M.ORTHSURG 05-22 22:32
PROVIDERS: Internal Medicine; Internal Medicine Nephrology; Personal Emergency Response Attendant; ADMIT Internal Medicine
PROC: 5A1D70Z Performance of Urinary Filtration, Intermittent, Less than 6 Hours Per Day (ICD-10-PCS; principal; 2018-05-22)
DX: J69.0 Pneumonitis due to inhalation of food and vomit (principal); N18.6 End stage renal disease; J96.01 Acute respiratory failure with hypoxia; I12.0 Hypertensive chronic kidney disease with stage 5 chronic kidney disease or end stage renal disease; I48.1 Persistent atrial fibrillation; E03.9 Hypothyroidism, unspecified; J84.10 Pulmonary fibrosis, unspecified; I27.20 Pulmonary hypertension, unspecified; D69.6 Thrombocytopenia, unspecified; R91.1 Solitary pulmonary nodule; R59.0 Localized enlarged lymph nodes; J44.9 Chronic obstructive pulmonary disease, unspecified; E83.39 Other disorders of phosphorus metabolism; D63.1 Anemia in chronic kidney disease; I25.10 Atherosclerotic heart disease of native coronary artery without angina pectoris; Z99.2 Dependence on renal dialysis; Z88.2 Allergy status to sulfonamides; Z88.8 Allergy status to other drugs, medicaments and biological substances; Z79.899 Other long term (current) drug therapy; Z80.1 Family history of malignant neoplasm of trachea, bronchus and lung; Z87.891 Personal history of nicotine dependence; Z79.01 Long term (current) use of anticoagulants; Z95.5 Presence of coronary angioplasty implant and graft

== ENCOUNTER 2018-06-05 06:17 | Inpatient (IN) | payer OTHER ==
[~2018-06-05] VITALS: Ht 180.3 cm; Wt 76.7 kg
--- NOTE | ~2018-06-05 | CON ---
[address] [address] CONSULTATION Name: JOURDAN CRAVEN Maximino Room: [address] IN .R.#: [id number] Admission: 06/05/18 Attend Phys: Kenan Buchanan MD Discharge: Date of : 40 Report #: [id number] THIS REPORT FOR: //name// CC: Kenan Reddy [facility] DATE OF SERVICE: 06/06/2018 NEPHROLOGY CONSULTATION CONSULTING PHYSICIAN: Kenan Buchanan MD REASON FOR NEPHROLOGY CONSULTATION: End-stage renal disease for dialysis needs. REASON FOR ADMISSION: Shortness of breath. HISTORY OF PRESENT ILLNESS: This is a 78-year-old male who has chronic respiratory failure, has a history of ANCA vasculitis, end-stage renal disease and he is on hemodialysis at [facility] every Tuesday, Tuesday and Tuesday. He came in yesterday because of shortness of breath. He does have history of interstitial fibrosis and he was also wheezing on admission and Pulmonology was consulted. He was started on steroids, also dialyzed yesterday with 3.8 liter fluid removal and his breathing has improved. He is currently on 2 liters of oxygen and his oxygen saturation is more than 90% whereas on admission, his oxygen saturation was in the 80s. He does use oxygen at home, but only at nighttime. His potassium was 5.9 yesterday, but after dialysis has improved to 5.0 today and he did not have any acute complaints this morning. Of note, the patient has been having trouble breathing and has had multiple admissions because of the same reason several times in the last few months. He has a left arm AV fistula. REVIEW OF SYSTEMS: As mentioned in history of present illness mellitus. ALLERGIES: CLOPIDOGREL, SULFAMETHOXAZOLE, TRIMETHOPRIM. HOME MEDICATIONS: Nebulizer, carvedilol, diltiazem, budesonide, levothyroxine, calcium carbonate, apixaban, furosemide, terazosin, folic acid, aspirin. PAST MEDICAL AND SURGICAL HISTORY: Includes end-stage renal disease and he is on hemodialysis every Tuesday, Tuesday and Tuesday, history of ANCA vasculitis, history of pulmonary fibrosis, history of hypertension, hypothyroidism, cardiac history of cardioversion, history of anemia of chronic kidney disease, pneumonia, vasculitis, atrial fibrillation. FAMILY HISTORY: cancer. Father of lung cancer [place] [address] CONSULTATION Name: JOURDAN CRAVEN Room: [address]#: [id number] Admission: 06/05/18 Attend Phys: Kenan Buchanan MD Discharge: Date of : 40 Report #: [id number] SOCIAL HISTORY: Lives at home. He is a former smoker. He does use alcohol on special occasions, not using any recreational drugs. PHYSICAL EXAMINATION: VITAL SIGNS: Blood pressure is 127/57, pulse rate is 70, temperature is 37, respiratory rate is 18, pulse ox was 99% on 2 liters of oxygen by nasal cannula. GENERAL: He is awake and alert and oriented. He is eating his breakfast. HEENT: Mucous membranes are moist. NECK: There is no JVD. CHEST: Bilateral diminished breath sounds. No crackles. CARDIOVASCULAR: S1, S2 normal. No murmurs. ABDOMEN: Soft, nondistended, nontender. Bowel sounds are present. EXTREMITIES: He has a left arm AV fistula with good bruit and thrill. Lower extremities, he has no edema. NEUROLOGICAL FUNCTION: Gross neurological function is intact. PSYCHIATRIC: Mood and affect seems to be normal. LABORATORY DATA: Hemoglobin 7.8, WBC 7.0, platelet count 111. Potassium was 5.9 and 5.0 today and other labs are reviewed. IMAGING: Chest x-ray and chest CT were reviewed. ASSESSMENT: 1. End-stage renal disease, on hemodialysis every Tuesday, Tuesday and Tuesday. 2. History of ANCA vasculitis. 3. History of pulmonary fibrosis. 4. Acute on chronic respiratory failure, multifactorial etiology, partly fluid overload, partly because of history of pulmonary fibrosis, Pulmonology is following. It has improved today after dialysis yesterday. 5. Hyperkalemia, potassium was 5.9, now improved to 5.0 after dialysis. 6. Anemia of chronic kidney disease. 7. History of moderate pulmonary hypertension. PLAN: 1. Dialysis was completed yesterday with 3.8 liters fluid removal and his breathing has improved, dialysis will be again plan for tomorrow if he is still inpatient. 2. Renal diet. 3. We will manage his anemia with Epogen and/or iron based upon his iron levels. 4. Because of his history of ANCA vasculitis, ANCA titers were checked in early part of May this year and they were negative. 5. We will check phosphorus level as well. [address] [address] CONSULTATION Name: READERJOURDAN Room: [facility] IN M.R.#: [id number] Admission: 06/05/18 Attend Phys: Kenan Buchanan MD Discharge: Date of : 40 Report #: [id number] Thank you for this consultation. We will continue to follow along with you for his dialysis needs. By: [id number] Ernandez MD /nt
[~2018-06-05 06:17] MED LIST changes: +CALCIUM ACETAT667 MG PO; +CARDIZEM CD240 MG PO; +LEVAQUIN 750 M750 MG PO; +PREDNISONE10 MG PO; +RENAL VITAMIN0.8 MG PO; -TUMS E.S.750 MG PO; -TYLENOL325 MG PO
[2018-06-05 06:29] VITALS: BP 150/63
[2018-06-05 06:55] LABS: HEMATOCRIT 25.7 % (42.0-52.0); HEMOGLOBIN 8.7 gm/dL (14.0-18.0); MCH 33.9 pg (26.0-34.0); MCHC 33.8 g/dL (28.0-37.0); MCV 100.4 fL (80.0-100.0); MPV 8.3 fl. (7.2-11.1); NUCLEATED RBCS 0 /100WBC; PLATELET COUNT* 118 thou/uL (150-400); RBC 2.56 mil/uL (4.50-6.00); RDW-CV 19.2 % (10.5-14.5); WBC 9.4 thou/uL (4.0-11.0)
[2018-06-05 06:56] LABS: BE 0.9 mmol/L (-2 to +3); HCO3 25.5 mmol/L (22.0-26.0); PCO2 40.7 mmHg (35.0-45.0); PO2 94.4 mmHg (75.0-100.0); pH 7.415 (7.340-7.450)
[2018-06-05 07:08] LABS: APTT 32.8 Seconds (25.0-31.3); INR 1.3; PROTIME 13.4 Seconds (9.20-11.50)
[2018-06-05 07:16] LABS: NT-PRO BRAIN NAT PEPTIDE 29027 pg/mL (<300); TROPONIN-I LEVEL <0.06 ng/mL (<0.06)
[2018-06-05 07:17] LABS: CREATININE 6.9 mg/dL (0.6-1.3); POTASSIUM 5.9 mmol/L (3.5-5.1)
[2018-06-05 07:20] LABS: ABSOLUTE EOSINOPHILS 0.1 thou/uL (0.0-0.7); ABSOLUTE LYMPHOCYTES 0.3 thou/uL (0.8-5.3); ABSOLUTE MONOCYTES 0.3 thou/uL (0.0-1.2); ABSOLUTE NEUTROPHILS 8.7 thou/uL (1.6-8.1); ANISOCYTOSIS 1+; PLATELET ESTIMATE DECREASED; POIKILOCYTOSIS 1+
[2018-06-05 07:21] LABS: ALBUMIN 2.9 g/dL (3.4-5.0); MAGNESIUM 2.1 mg/dL (1.8-2.4); TOTAL BILIRUBIN 0.6 mg/dL (<0.1-1.0); TOTAL PROTEIN 6.2 g/dL (6.4-8.2)
--- NOTE | 2018-06-05 08:18 | NUR ---
PT TRIED TO GIVE URINE SAMPLE BUT HAS NOT BEEN ABLE TO PRODUCE THIS MORNING
[2018-06-05 11:53] VITALS: BP 145/60
--- NOTE | 2018-06-05 12:10 | NUR ---
ER ADMIT TO RM 225 TELEPHONE REPORT GIVEN PATIENT DENIES PAIN ORIENTED TO RM AND CALL LIGHT HX AND ASSMNT TO BE DONE
[2018-06-05 12:15] VITALS: BP 153/66
--- NOTE | 2018-06-05 15:44 | EKG ---
[place] [address] ELECTROCARDIOGRAM REPORT Name: JOURDAN CRAVEN Room: [address] ADM IN [facility].#: [id number] Admission: 06/05/18 Attend Phys: Kenan Buchanan MD Discharge: Date of : 40 Report #: [id number] THIS REPORT FOR: //name// [facility] ED Test Date: 2018-06-05 Test Time: 06:47:37 Pat Name: JOURDAN CRAVEN Department: Room: [facility] Gender: M Speech Assistant: ALLISON : 1940 Requested By: Rosalina Jj Order Number: [id number] MD: Solitario Rico Measurements Intervals [place] Rate: 56 P: TX: QRS: 34 QRSD: 97 T: 51 QT: 411 QTc: 397 Interpretive Statements Atrial fibrillation Abnormal R-wave progression, late transition Compared to ECG 05/17/2018 17:48:38 T-wave abnormality no longer present Electronically Signed On 06-05-2018 15:44:23 IN HOME TUTOR by Solitario Rico [email or web address] <ELECTRONICALLY SIGNED> By: Solitario Rico MD, [facility] 06/05/18 [id number] Solitario Rico MD, [facility] /EPI
[2018-06-05 20:00] VITALS: BP 152/69
[2018-06-05 23:42] LABS: URINE BILIRUBIN NEGATIVE (Negative); URINE BLOOD 1+ (Negative); URINE CLARITY CLEAR; URINE COLOR YELLOW; URINE GLUCOSE-RANDOM NEGATIVE (Negative); URINE KETONES NEGATIVE (Negative); URINE LEUKOCYTES-REFLEX NEGATIVE (Negative); URINE NITRITE-REFLEX NEGATIVE (Negative); URINE PROTEIN 2+ (Negative); URINE UROBILINOGEN 0.2 E.U./dl (0.2-1.0)
[2018-06-06] VITALS (7 sets, daily range): BP systolic 85–127; BP diastolic 37–57
[2018-06-06 00:04] LABS: CASTS None Seen /LPF (None Seen); SQUAMOUS 0-3 Few /LPF (0-3)
[2018-06-06 00:05] LABS: BACTERIA-REFLEX None Seen /HPF (None Seen); CRYSTALS None Seen /LPF (None Seen); URINE RBC 3-10 Few /HPF (0-2); URINE WBC-REFLEX 0-5 Rare /HPF (0-5)
[2018-06-06 05:58] LABS: ABSOLUTE LYMPHOCYTES 0.1 thou/uL (0.8-5.3); ABSOLUTE NEUTROPHILS 6.8 thou/uL (1.6-8.1); EOSINOPHILS 0.1 %; HEMATOCRIT 22.4 % (42.0-52.0); HEMOGLOBIN 7.8 gm/dL (14.0-18.0); MCH 35.1 pg (26.0-34.0); MCHC 34.8 g/dL (28.0-37.0); MCV 100.8 fL (80.0-100.0); MONOCYTES 0.5 %; NUCLEATED RBCS 0 /100WBC; PLATELET COUNT* 111 thou/uL (150-400); POLYS 97.4 %; RBC 2.22 mil/uL (4.50-6.00); RDW-CV 18.9 % (10.5-14.5)
[2018-06-06 06:07] LABS: CALCIUM 8.7 mg/dL (8.5-10.1)
--- NOTE | 2018-06-06 06:50 | NUR ---
Pt a/o x 4. O2 2L-3L NC. VSS. Last HD 06/05/18, tolerated HD well per HD nurse. Up with assist x 1. Denies pain and any other discomfort at this time. Pt resting in bed comfortably at this time. Call light within reach. Fall precautions maintained. Will continue to monitor.
--- NOTE | 2018-06-06 07:20 | NUR ---
CHANGE OF SHIFT, BEDSIDE REPORT GIVEN PATIENT SEEN AT BEDSIDE, IN BED WATCHING TV ASSUMED PATIENT CARE
--- NOTE | 2018-06-06 11:40 | NUR ---
MET WITH PT TO DISCUSS HOME SITUATION/DC PLANNING. PT KNOWN TO CM FROM PREVIOUS ADMIT. PT LIVES WITH . HE GOES TO DIALYSIS AT [facility], 5AM. HE DRIVES HIMSELF. PT USES O2 AT NIGHT AND HAS NEBULIZER THRU [facility]. HE VOICED THAT HE IS 'OUT' OF NEB MEDS, HAS BEEN TRYING TO GET REFILLED. PT ALSO HAS [employer] NURSE THAT SEES HIM MONTHLY, HASN'T HAD HH OR BEEN TO SNF. PT VOICED FRUSTRATION THAT HE HAS HAD [facility]. HOPEFUL FOR ANSWERS. PT DENIES DC NEEDS AT THIS TIME. WILL FOLLOW
[2018-06-07] VITALS: BP 105/50
[2018-06-07 04:00] VITALS: BP 112/56
[2018-06-07 05:33] LABS: ABSOLUTE LYMPHOCYTES 0.2 thou/uL (0.8-5.3); ABSOLUTE MONOCYTES 0.1 thou/uL (0.0-1.2); ABSOLUTE NEUTROPHILS 9.2 thou/uL (1.6-8.1); BASOPHILS 0.1 %; HEMATOCRIT 22.7 % (42.0-52.0); HEMOGLOBIN 7.8 gm/dL (14.0-18.0); LYMPHOCYTES 1.9 %; MCH 34.8 pg (26.0-34.0); MCHC 34.5 g/dL (28.0-37.0); MONOCYTES 1.4 %; NUCLEATED RBCS 0 /100WBC; PLATELET COUNT* 103 thou/uL (150-400); POLYS 96.6 %; RBC 2.25 mil/uL (4.50-6.00); RDW-CV 18.9 % (10.5-14.5); WBC 9.5 thou/uL (4.0-11.0)
--- NOTE | 2018-06-07 05:50 | NUR ---
Pt A/O x 4. O2 2L NC. A-fib with HR in 40s-60s. VSS. HD M/W/F. Up with standby assist. Able to turn and reposition in bed independently. Denies pain or any other discomfort. Fall precautions maintained. Call light within reach. Will continue to monitor.
[2018-06-07 05:54] LABS: CALCIUM 8.9 mg/dL (8.5-10.1); PHOSPHORUS* 5.5 mg/dL (2.5-4.9); POTASSIUM 5.6 mmol/L (3.5-5.1)
[2018-06-07 05:58] LABS: CREATININE 5.7 mg/dL (0.6-1.3)
[2018-06-07 06:23] LABS: % SATURATION 72 % (20-39); IRON 100 ug/dL (50-175)
--- NOTE | 2018-06-07 07:20 | NUR ---
CHANGE OF SHIFT, BEDSIDE REPORT GIVEN PATIENT ALICIA AT BEDSIDE, IN BED WATCHING TV ASSUMED PATIENT CARE
[2018-06-07 08:00] VITALS: BP 125/56
[2018-06-07 13:23] VITALS: BP 125/56
[2018-06-07] MEDS ORDERED: AUGMENTIN 875-1 EACH PO (16:25)
[2018-06-07] MEDS ORDERED: PREDNISONE 10 M10 MG PO (16:28)
[2018-06-07] MEDS ORDERED: TYLENOL325 MG PO (17:12)
--- NOTE | 2018-06-07 17:51 | NUR ---
PATIENT DISCHARGED TO HOME ALL DISCHARGE INFORMATION GIVEN, ACKNOWLERGED, AND SIGNED COPIES GIVEN IV AND HEART MONITOR REMOVED PERSONAL BELONGIGNS RETURNED ASSISTED OUT VIA WC GOOD CONDITION TO WAITING CAR
--- NOTE | 2018-06-08 12:47 | CON ---
[address] [address] CONSULTATION Name: JOURDAN CRAVEN Room: [address] IN ..#: [id number] Admission: 06/05/18 Attend Phys: Kenan Buchanan MD Discharge: 06/07/18 Date of : 40 Report #: [id number] THIS REPORT FOR: //name// CC: Kenan Calabrese REASON FOR CONSULTATION: Hypoxia, respiratory failure. HISTORY OF PRESENT ILLNESS: This is a 78-year-old male patient with history of end-stage renal disease, on dialysis and chronic lung disease, on nocturnal oxygen at baseline. He presented to the ER and admitted on 06/05/2018 because of chief complaint of shortness of breath. He was hospitalized at this facility multiple times. The last hospitalization actually was earlier this month. He was treated for bronchospasm and given steroids. He improved and went home. According to him at the time of discharge, he was at his baseline, but in the last few days, he started having more and more shortness of breath and actually he noticed he had lower extremity edema of 1 day's duration prior to hospitalization. His last dialysis was last Tuesday and he is due for dialysis today and he noted that his shortness of breath gets worse when he lays flat, which is consistent with a history of orthopnea. His O2 saturation upon arrival to the ER was 81% on room air. The patient has a background history of ANCA positive vasculitis, although he is not on any specific treatment at this point. 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 He does not follow regularly with Pulmonary or Rheumatology. He denied any hemoptysis at this point. He is on bronchodilator at home and he is on inhaled steroids. PAST MEDICAL HISTORY: End-stage renal disease, on dialysis; chronic hemodialysis, p-ANCA vasculitis, history of AFib, history of anticoagulation for AFib, nonischemic cardiomyopathy, stent placement for coronary artery disease, history of hypothyroidism, hypertension and anemia of chronic disease. ALLERGIES: SULFA AND PLAVIX. SOCIAL HISTORY: He smoked in the past. He quit more than 20 years ago. He does not drink alcohol excessively, does not abuse drugs. FAMILY HISTORY: Positive for lung cancer. REVIEW OF SYSTEMS: Twelve points reviewed with the patient and negative other than as mentioned above. Negative for difficulty swallowing, dysphagia, abdominal pain, headache or blurring of vision, dizziness, loss of consciousness. Rest of the review of system was negative. PHYSICAL EXAMINATION: VITAL SIGNS: On examination, blood pressure 145/60, O2 saturation 99% on 2.5 L oxygen, temperature 37, breathing 22 [place] [address] CONSULTATION Name: JOURDAN CRAVEN Room: [address] IN M.R.#: [id number] Admission: 06/05/18 Attend Phys: Kenan Buchanan MD Discharge: 06/07/18 Date of : 40 Report #: [id number] GENERAL: During my visit, he was awake, alert, answered questions appropriately, no obvious distress. HEENT: Head normocephalic, atraumatic. Pupils reactive to light, slightly pale. External ears looks healthy and normal. Nasal cavity, patent passages. Oral cavity, no thrush. Moist mucous membranes. NECK: Supple. Full range of movement. CHEST: Diminished air movement bilaterally. I did hear a coarse breathing with rhonchi and occasional end-expiratory wheeze. Symmetrical expansion, nontender. HEART: S1, S2. Faint systolic murmur at left sternal border. ABDOMEN: Benign, soft, lax, nontender, positive bowel sounds. EXTREMITIES: Lower extremities, +1 edema, equal bilaterally. No calf tenderness. SKIN: No rash. Some chronic discoloration noted in the upper extremities. PSYCHIATRIC: Mood and affect appropriate. Good insight and judgment. NEUROLOGIC: Moving all 4 extremities spontaneously. No focal weakness. LABORATORY DATA: His white blood count is 9.4, hemoglobin 8.7 and platelets of 118. AB.4/40/94. This was done on 2.5 liter oxygen. His INR is 1.3, creatinine of 6.9, potassium 5.9, sodium 136, BUN of 97. BNP was elevated. His chest x-ray continued to show basilar infiltrates with pleural effusion, more on the right than the left. However, overall better than his last chest x-ray from previous hospitalization. IMPRESSION: 1. [id number] hypoxic respiratory failure: The patient at baseline on 2 liter oxygen. 2. Pleural effusion. 3. Lower extremity edema. 4. Fluid overload. 5. End-stage renal disease, on dialysis. 6. History of p-ANCA vasculitis. 7. Pulmonary infiltrate. 8. Suspected recurrent pneumonia. 9. History of atrial fibrillation, on anticoagulation. The patient's respiratory failure is multifactorial. Definitely, there is additional fluid overload with lower extremity edema and history suggests PNDs. Of note, his last echocardiogram, which was done in May of this year, during the last hospitalization, the ejection fraction was 50% and he had AFib. With the wheezing, I am going to start him on steroids and he will be on scheduled nebulization treatment. I agree with the antibiotics. Thromboembolic disease is less likely given the fact that he is fully anticoagulated. I am going to proceed with a CT scan of the chest without contrast. If this cannot clarify further the nature of the infiltrates and the size of the pleural effusion, potentially may consider thoracentesis; however, [place] [address] CONSULTATION Name: HERBERJOURDAN Stanton Room: [address] IN .R.#: [id number] Admission: 06/05/18 Attend Phys: Kenan Buchanan MD Discharge: 06/07/18 Date of : 40 Report #: [id number] anticoagulation and needs to be held for a few days before we proceed with thoracentesis if we decide. Thank you for the consult. We will follow along with you. <ELECTRONICALLY SIGNED> By: Anibal Dos Santos MD 06/08/18 1247 [id number] [id number] Dos Santos MD /nt
== END 2018-06-07 18:04 | disposition home or self-care (01) | DRG 177 ==
LOC: M.ERS 06:17 → M.TBA-ER 08:02 → M.2W 08:02
PROVIDERS: Internal Medicine; Personal Emergency Response Attendant; ADMIT Internal Medicine
PROC: 5A1D70Z Performance of Urinary Filtration, Intermittent, Less than 6 Hours Per Day (ICD-10-PCS; principal; 2018-06-05)
PROC: 5A1D70Z Performance of Urinary Filtration, Intermittent, Less than 6 Hours Per Day (ICD-10-PCS; 2018-06-07)
DX: J15.6 Pneumonia due to other Gram-negative bacteria (principal); J96.21 Acute and chronic respiratory failure with hypoxia; N18.6 End stage renal disease; I13.2 Hypertensive heart and chronic kidney disease with heart failure and with stage 5 chronic kidney disease, or end stage renal disease; I42.9 Cardiomyopathy, unspecified; E03.9 Hypothyroidism, unspecified; E87.5 Hyperkalemia; J84.10 Pulmonary fibrosis, unspecified; I35.1 Nonrheumatic aortic (valve) insufficiency; J20.9 Acute bronchitis, unspecified; D63.1 Anemia in chronic kidney disease; I27.20 Pulmonary hypertension, unspecified; I48.91 Unspecified atrial fibrillation; Z99.2 Dependence on renal dialysis; Z79.82 Long term (current) use of aspirin; Z79.899 Other long term (current) drug therapy; Z88.8 Allergy status to other drugs, medicaments and biological substances; Z88.2 Allergy status to sulfonamides; Z88.1 Allergy status to other antibiotic agents; Z79.01 Long term (current) use of anticoagulants; Z87.891 Personal history of nicotine dependence; Z99.81 Dependence on supplemental oxygen